=== PATIENT | male | born 1945 | race Caucasian/White ===

== ENCOUNTER 2016-12-05 17:27 | Inpatient (IN) | payer MEDICARE, MEDICAID ==
[~2016-12-05] VITALS: Ht 165.1 cm; Wt 72.1 kg
[2016-12-05] MEDS ORDERED: TEMA7.5C2 PO (18:00)
[2016-12-05] MEDS ORDERED: ATOR20TA PO (18:00)
[2016-12-05] MEDS ORDERED: MAGN400O6 PO (18:00)
[2016-12-05] MEDS ORDERED: AMAN100T PO (18:00)
[2016-12-05] MEDS ORDERED: MAG355OR18 PO (18:00)
[2016-12-05] MEDS ORDERED: NA P133E RC (18:00)
[2016-12-05] MEDS ORDERED: POLY15DR57 OP (18:00)
[2016-12-05] MEDS ORDERED: LORA1TAB PO (18:00)
[2016-12-05] MEDS ORDERED: RISP3TAB5 PO (18:00)
[2016-12-05] MEDS ORDERED: SENN-167 PO (18:00)
[2016-12-05] MEDS ORDERED: BISA10SU12 RC (18:00)
[2016-12-05] MEDS ORDERED: DOCU-141 PO (18:00)
[2016-12-05] MEDS ORDERED: ACET325T53 PO (18:00)
[2016-12-05] MEDS ORDERED: ASPI81TA31 PO (18:00)
[2016-12-05] MEDS ORDERED: PROP10TA10 PO (18:00)
[2016-12-05] MEDS ORDERED: AMLO5TAB2 PO (18:00)
[2016-12-05] MEDS ORDERED: DIVA500T2 PO (18:00)
[2016-12-05] MEDS ORDERED: MEGE40TA PO (18:00)
[2016-12-05] MEDS ORDERED: NICO1PAT28 TD (18:00)
[2016-12-05 18:03] LABS: BASOPHILS # (AUTO) 0.1 K/uL (0.0-8.0); BASOPHILS % (AUTO) 0.8 % (0.0-2.0); EOSINOPHILS # (AUTO) 0.3 K/uL (0.0-0.7); HEMATOCRIT 41.9 % (40-50); HEMOGLOBIN 13.9 G/DL (14.0-18.0); LYMPHOCYTES # (AUTO) 1.8 K/UL (0.8-4.8); LYMPHOCYTES % (AUTO) 26.8 % (20.5-51.5); MEAN CORPUSCULAR HEMOGLOBIN 29.5 UUG (27.0-31.0); MEAN CORPUSCULAR HGB CONC 33 g/dL (32.0-37.0); MEAN CORPUSCULAR VOLUME 88.7 FL (82.0-92.0); MONOCYTES # (AUTO) 0.4 K/UL (0.1-1.30); MONOCYTES % (AUTO) 5.8 % (0.0-11.0); NEUTROPHILS % (AUTO) 61.6 % (38.5-71.5); PLATELET COUNT (AUTO) 220 K/UL (150-450); RED BLOOD CELL COUNT(AUTO) 4.72 MIL/UL (4.7-6.1); WHITE BLOOD COUNT (AUTO) 6.6 K/UL (4.0-11.2)
[2016-12-05 18:08] LABS: CARBON DIOXIDE 25 mmol/L (21-32); CHLORIDE 107 mmol/L (98-107); CREATININE 1.1 mg/dL (0.6-1.3); GLUCOSE 89 mg/dL (74-106); POTASSIUM 3.9 mmol/L (3.5-5.1); UREA NITROGEN, BLOOD 22 mg/dL (7-18)
[2016-12-05 18:15] LABS: ALANINE AMINOTRANSFERASE 20 U/L (16-63); ALKALINE PHOSPHATASE 79 U/L (50-136); ASPARTATE AMINOTRANSFERASE 12 U/L (15-37); BILIRUBIN,DIRECT 0.1 mg/dL (0.0-0.2); BILIRUBIN,TOTAL 0.3 mg/dL (0.2-1.0); TOTAL PROTEIN, SERUM 7.7 g/dL (6.4-8.2)
[2016-12-05 18:16] LABS: ETHANOL < 3 MG/DL (0-0)
[2016-12-05 18:17] LABS: ACETAMINOPHEN < 2.0 ug/mL (10-30)
[2016-12-05] MEDS ORDERED: MAG HYDROX/AL HYDROX/SIMETH 30 ML LIQUID UDC PO PRN (20:15)
[2016-12-05] MEDS ORDERED: Z GUARD REMEDY PASTE 57 GM TUBE TOP PRN (20:15)
[2016-12-05] MEDS ORDERED: MAGNESIUM HYDROXIDE 30 ML LIQUID UDC PO PRN (20:15)
[2016-12-05] MEDS ORDERED: ACETAMINOPHEN 325 MG TABLET PO PRN (20:15)
[2016-12-05 21:00] VITALS: BP 130/88
[2016-12-05] MEDS: TEMAZEPAM 7.5 MG CAPSULE PO PRN (21:40)
[2016-12-05 21:58] VITALS: BP 130/88
[2016-12-05] MEDS ORDERED: BISACODYL 10 MG SUPP.RECT RC PRN (22:45)
[2016-12-05] MEDS ORDERED: FLEET ENEMA 133 ML BOTTLE RC PRN (22:45)
[2016-12-06] MEDS: LORAZEPAM 1 MG TABLET PO PRN (01:44)
[2016-12-06 07:49] LABS: MAGNESIUM 1.8 mg/dL (1.8-2.4); PHOSPHOROUS 3.4 mg/dL (2.5-4.9)
[2016-12-06 07:54] LABS: THYROID STIMULATING HORMONE 0.476 mIU/mL (0.358-3.740)
[2016-12-06] MEDS ORDERED: NICOTINE 21 MG/24HR PATCH TD SCH (09:00)
[2016-12-06] MEDS: DOCUSATE SODIUM 100 MG CAPSULE PO SCH ×2 (10:13→16:40)
[2016-12-06] MEDS: MEGESTROL ACETATE 20 MG TABLET PO SCH ×2 (10:13→16:40)
[2016-12-06] MEDS: NICOTINE 21 MG/24HR PATCH TD SCH (10:13)
[2016-12-06] MEDS: PROPRANOLOL HCL 10 MG TABLET PO SCH ×2 (10:13→16:40)
[2016-12-06] MEDS: AMLODIPINE 5 MG TABLET PO SCH (10:13)
[2016-12-06] MEDS: ASPIRIN 81 MG TAB.CHEW PO SCH (10:13)
[2016-12-06] MEDS: AMANTADINE HCL 100 MG CAPSULE PO SCH ×2 (10:13→16:40)
[2016-12-06] MEDS: POLYVINYL ALCOHOL OPHT DROPS 15 ML BOTTLE OP SCH (11:48)
[2016-12-06 15:00] VITALS: BP 148/51
[2016-12-06 21:00] VITALS: BP 136/70
[2016-12-06] MEDS: VALPROIC ACID 250 MG CAPSULE PO SCH (22:19)
[2016-12-06] MEDS: SENNOSIDES 1 TABLET PO SCH (22:20)
[2016-12-06] MEDS: ATORVASTATIN 20 MG TABLET PO SCH (22:20)
[2016-12-06] MEDS: risperiDONE-M 0.5 MG TAB.RAPDIS PO SCH (22:20)
[2016-12-07 07:30] VITALS: BP 128/87
[2016-12-07] MEDS: NICOTINE 21 MG/24HR PATCH TD SCH (09:19)
[2016-12-07] MEDS: MEGESTROL ACETATE 20 MG TABLET PO SCH ×2 (09:21→16:33)
[2016-12-07] MEDS: VALPROIC ACID 250 MG CAPSULE PO SCH ×2 (09:21→20:20)
[2016-12-07] MEDS: risperiDONE-M 0.5 MG TAB.RAPDIS PO SCH ×2 (09:21→20:19)
[2016-12-07] MEDS: ASPIRIN 81 MG TAB.CHEW PO SCH (09:22)
[2016-12-07] MEDS: AMANTADINE HCL 100 MG CAPSULE PO SCH ×2 (09:22→16:33)
[2016-12-07] MEDS: POLYVINYL ALCOHOL OPHT DROPS 15 ML BOTTLE OP SCH (09:23)
[2016-12-07] MEDS: DOCUSATE SODIUM 100 MG CAPSULE PO SCH ×2 (09:23→16:31)
[2016-12-07] MEDS: PROPRANOLOL HCL 10 MG TABLET PO SCH ×2 (09:25→16:32)
[2016-12-07] MEDS: AMLODIPINE 5 MG TABLET PO SCH (09:25)
[2016-12-07 15:26] VITALS: BP 123/59
[2016-12-07] MEDS: SENNOSIDES 1 TABLET PO SCH (20:20)
[2016-12-07] MEDS: ATORVASTATIN 20 MG TABLET PO SCH (20:20)
[2016-12-07 22:05] VITALS: BP 126/82
[2016-12-08 07:22] LABS: BASOPHILS % (AUTO) 0.8 % (0.0-2.0); EOSINOPHILS # (AUTO) 0.3 K/uL (0.0-0.7); EOSINOPHILS % (AUTO) 4.6 % (0.0-7.0); HEMATOCRIT 40.5 % (40-50); HEMOGLOBIN 13.8 G/DL (14.0-18.0); LYMPHOCYTES # (AUTO) 1.7 K/UL (0.8-4.8); LYMPHOCYTES % (AUTO) 28.9 % (20.5-51.5); MEAN CORPUSCULAR HEMOGLOBIN 30.2 UUG (27.0-31.0); MEAN CORPUSCULAR HGB CONC 34 g/dL (32.0-37.0); MEAN CORPUSCULAR VOLUME 89.1 FL (82.0-92.0); MONOCYTES # (AUTO) 0.4 K/UL (0.1-1.30); MONOCYTES % (AUTO) 6.7 % (0.0-11.0); NEUTROPHILS # (AUTO) 3.6 K/UL (1.8-8.9); PLATELET COUNT (AUTO) 173 K/UL (150-450); RED BLOOD CELL COUNT(AUTO) 4.55 MIL/UL (4.7-6.1)
[2016-12-08 07:48] LABS: ALANINE AMINOTRANSFERASE 18 U/L (16-63); ALKALINE PHOSPHATASE 76 U/L (50-136); ASPARTATE AMINOTRANSFERASE 11 U/L (15-37); BILIRUBIN,TOTAL 0.5 mg/dL (0.2-1.0); CARBON DIOXIDE 27 mmol/L (21-32); CHLORIDE 107 mmol/L (98-107); CREATININE 1.2 mg/dL (0.6-1.3); GLUCOSE 95 mg/dL (74-106); MAGNESIUM 1.8 mg/dL (1.8-2.4); PHOSPHOROUS 3.2 mg/dL (2.5-4.9); POTASSIUM 3.7 mmol/L (3.5-5.1); TOTAL PROTEIN, SERUM 7.6 g/dL (6.4-8.2); UREA NITROGEN, BLOOD 23 mg/dL (7-18)
[2016-12-08] MEDS: MEGESTROL ACETATE 20 MG TABLET PO SCH ×2 (10:18→17:38)
[2016-12-08] MEDS: ASPIRIN 81 MG TAB.CHEW PO SCH (10:18)
[2016-12-08] MEDS: AMANTADINE HCL 100 MG CAPSULE PO SCH ×2 (10:18→17:38)
[2016-12-08] MEDS: risperiDONE-M 0.5 MG TAB.RAPDIS PO SCH ×2 (10:19→20:18)
[2016-12-08] MEDS: AMLODIPINE 5 MG TABLET PO SCH (10:19)
[2016-12-08] MEDS: VALPROIC ACID 250 MG CAPSULE PO SCH ×2 (10:20→20:17)
[2016-12-08] MEDS: DOCUSATE SODIUM 100 MG CAPSULE PO SCH ×2 (10:22→17:36)
[2016-12-08] MEDS: PROPRANOLOL HCL 10 MG TABLET PO SCH ×2 (10:26→17:37)
[2016-12-08] MEDS: NICOTINE 21 MG/24HR PATCH TD SCH (10:26)
[2016-12-08] MEDS: POLYVINYL ALCOHOL OPHT DROPS 15 ML BOTTLE OP SCH (10:27)
[2016-12-08 17:06] VITALS: BP 125/60
[2016-12-08] MEDS: SENNOSIDES 1 TABLET PO SCH (20:17)
[2016-12-08] MEDS: ATORVASTATIN 20 MG TABLET PO SCH (20:17)
[2016-12-08 20:43] VITALS: BP 115/58
[2016-12-08 21:40] VITALS: BP 116/64
[2016-12-09 07:30] VITALS: BP 130/64
[2016-12-09] MEDS: LORAZEPAM 1 MG TABLET PO PRN (10:36)
[2016-12-09] MEDS: NICOTINE 21 MG/24HR PATCH TD SCH (10:36)
[2016-12-09] MEDS: VALPROIC ACID 250 MG CAPSULE PO SCH (10:37)
[2016-12-09] MEDS: risperiDONE-M 0.5 MG TAB.RAPDIS PO SCH ×3 (10:37→18:14)
[2016-12-09] MEDS: MEGESTROL ACETATE 20 MG TABLET PO SCH ×2 (10:38→18:17)
[2016-12-09] MEDS: AMANTADINE HCL 100 MG CAPSULE PO SCH ×2 (10:38→18:18)
[2016-12-09] MEDS: DOCUSATE SODIUM 100 MG CAPSULE PO SCH ×2 (10:38→18:19)
[2016-12-09] MEDS: ASPIRIN 81 MG TAB.CHEW PO SCH (10:39)
[2016-12-09] MEDS: AMLODIPINE 5 MG TABLET PO SCH (10:39)
[2016-12-09] MEDS: PROPRANOLOL HCL 10 MG TABLET PO SCH ×2 (10:48→17:00)
[2016-12-09] MEDS: POLYVINYL ALCOHOL OPHT DROPS 15 ML BOTTLE OP SCH (10:54)
[2016-12-09] MEDS ORDERED: VALPROIC ACID 250 MG CAPSULE PO SCH (13:00)
[2016-12-09] MEDS: VALPROIC ACID 250 MG/5 ML LIQUID UDC PO SCH ×2 (14:15→18:17)
[2016-12-09 16:40] VITALS: BP 109/59
[2016-12-09 19:30] VITALS: BP 108/69
[2016-12-09] MEDS: ATORVASTATIN 20 MG TABLET PO SCH (20:43)
[2016-12-09] MEDS: SENNOSIDES 1 TABLET PO SCH (20:43)
[2016-12-10] MEDS: LORAZEPAM 1 MG TABLET PO PRN ×2 (01:08→20:41)
[2016-12-10] MEDS: NICOTINE 21 MG/24HR PATCH TD SCH (08:09)
[2016-12-10] MEDS: DOCUSATE SODIUM 100 MG CAPSULE PO SCH ×2 (08:09→16:13)
[2016-12-10] MEDS: ASPIRIN 81 MG TAB.CHEW PO SCH (08:09)
[2016-12-10] MEDS: PROPRANOLOL HCL 10 MG TABLET PO SCH ×2 (08:09→16:12)
[2016-12-10] MEDS: MEGESTROL ACETATE 20 MG TABLET PO SCH ×2 (08:10→16:12)
[2016-12-10] MEDS: risperiDONE-M 0.5 MG TAB.RAPDIS PO SCH ×3 (08:10→16:11)
[2016-12-10] MEDS: AMLODIPINE 5 MG TABLET PO SCH (08:10)
[2016-12-10] MEDS: VALPROIC ACID 250 MG/5 ML LIQUID UDC PO SCH ×3 (08:11→16:11)
[2016-12-10 10:00] VITALS: BP 140/92
[2016-12-10] MEDS: POLYVINYL ALCOHOL OPHT DROPS 15 ML BOTTLE OP SCH (11:15)
[2016-12-10] MEDS: AMANTADINE HCL 100 MG CAPSULE PO SCH ×2 (12:36→16:14)
[2016-12-10 15:09] VITALS: BP 138/86
[2016-12-10 20:00] VITALS: BP 137/80
[2016-12-10] MEDS: SENNOSIDES 1 TABLET PO SCH (20:41)
[2016-12-10] MEDS: ATORVASTATIN 20 MG TABLET PO SCH (20:41)
[2016-12-10] MEDS: Z GUARD REMEDY PASTE 57 GM TUBE TOP SCH (20:44)
[2016-12-11] MEDS: LORAZEPAM 1 MG TABLET PO PRN (03:55)
[2016-12-11 07:48] VITALS: BP 124/86
[2016-12-11] MEDS: PROPRANOLOL HCL 10 MG TABLET PO SCH ×2 (08:28→17:07)
[2016-12-11] MEDS: ASPIRIN 81 MG TAB.CHEW PO SCH (08:28)
[2016-12-11] MEDS: MEGESTROL ACETATE 20 MG TABLET PO SCH ×2 (08:28→17:07)
[2016-12-11] MEDS: AMLODIPINE 5 MG TABLET PO SCH (08:28)
[2016-12-11] MEDS: risperiDONE-M 0.5 MG TAB.RAPDIS PO SCH ×3 (08:29→17:08)
[2016-12-11] MEDS: DOCUSATE SODIUM 100 MG CAPSULE PO SCH ×2 (08:29→17:00)
[2016-12-11] MEDS: AMANTADINE HCL 100 MG CAPSULE PO SCH ×2 (08:29→17:08)
[2016-12-11] MEDS: NICOTINE 21 MG/24HR PATCH TD SCH (08:29)
[2016-12-11] MEDS: POLYVINYL ALCOHOL OPHT DROPS 15 ML BOTTLE OP SCH (08:29)
[2016-12-11] MEDS: VALPROIC ACID 250 MG/5 ML LIQUID UDC PO SCH ×3 (08:30→17:06)
[2016-12-11] MEDS: Z GUARD REMEDY PASTE 57 GM TUBE TOP SCH ×2 (08:40→20:40)
[2016-12-11 12:19] VITALS: BP 114/76
[2016-12-11 15:41] VITALS: BP 121/69
[2016-12-11 20:00] VITALS: BP 148/79
[2016-12-11] MEDS: SENNOSIDES 1 TABLET PO SCH (20:40)
[2016-12-11] MEDS: TEMAZEPAM 7.5 MG CAPSULE PO PRN (20:40)
[2016-12-11] MEDS: ATORVASTATIN 20 MG TABLET PO SCH (20:40)
[2016-12-12] MEDS: LORAZEPAM 1 MG TABLET PO PRN ×2 (02:04→06:47)
[2016-12-12] MEDS: ASPIRIN 81 MG TAB.CHEW PO SCH (08:46)
[2016-12-12] MEDS: VALPROIC ACID 250 MG/5 ML LIQUID UDC PO SCH ×3 (08:46→16:44)
[2016-12-12] MEDS: AMLODIPINE 5 MG TABLET PO SCH (08:47)
[2016-12-12] MEDS: DOCUSATE SODIUM 100 MG CAPSULE PO SCH ×2 (08:47→16:47)
[2016-12-12] MEDS: MEGESTROL ACETATE 20 MG TABLET PO SCH ×2 (08:47→16:47)
[2016-12-12] MEDS: PROPRANOLOL HCL 10 MG TABLET PO SCH ×2 (08:49→16:48)
[2016-12-12] MEDS: POLYVINYL ALCOHOL OPHT DROPS 15 ML BOTTLE OP SCH (08:50)
[2016-12-12] MEDS: NICOTINE 21 MG/24HR PATCH TD SCH (08:50)
[2016-12-12] MEDS: risperiDONE-M 0.5 MG TAB.RAPDIS PO SCH ×3 (08:50→16:47)
[2016-12-12] MEDS: AMANTADINE HCL 100 MG CAPSULE PO SCH ×2 (08:51→17:28)
[2016-12-12] MEDS: Z GUARD REMEDY PASTE 57 GM TUBE TOP SCH ×2 (08:52→20:12)
[2016-12-12 09:35] VITALS: BP 102/68
[2016-12-12 15:12] VITALS: BP 108/64
[2016-12-12 19:48] VITALS: BP 116/73
[2016-12-12] MEDS: SENNOSIDES 1 TABLET PO SCH (20:12)
[2016-12-12] MEDS: ATORVASTATIN 20 MG TABLET PO SCH (20:12)
[2016-12-13 07:42] VITALS: BP 139/83
[2016-12-13] MEDS: ASPIRIN 81 MG TAB.CHEW PO SCH (08:20)
[2016-12-13] MEDS: AMANTADINE HCL 100 MG CAPSULE PO SCH ×2 (08:20→17:24)
[2016-12-13] MEDS: MEGESTROL ACETATE 20 MG TABLET PO SCH ×2 (08:20→17:24)
[2016-12-13] MEDS: DOCUSATE SODIUM 100 MG CAPSULE PO SCH ×2 (08:20→17:24)
[2016-12-13] MEDS: risperiDONE-M 0.5 MG TAB.RAPDIS PO SCH ×3 (08:20→17:24)
[2016-12-13] MEDS: VALPROIC ACID 250 MG/5 ML LIQUID UDC PO SCH ×3 (08:20→17:24)
[2016-12-13] MEDS: NICOTINE 21 MG/24HR PATCH TD SCH (08:21)
[2016-12-13] MEDS: AMLODIPINE 5 MG TABLET PO SCH (08:21)
[2016-12-13] MEDS: POLYVINYL ALCOHOL OPHT DROPS 15 ML BOTTLE OP SCH (08:21)
[2016-12-13] MEDS: Z GUARD REMEDY PASTE 57 GM TUBE TOP SCH ×2 (08:22→21:00)
[2016-12-13] MEDS: PROPRANOLOL HCL 10 MG TABLET PO SCH ×2 (08:22→17:25)
[2016-12-13] MEDS: LORAZEPAM 1 MG TABLET PO PRN (10:00)
[2016-12-13 16:16] VITALS: BP 126/86
[2016-12-13 20:03] VITALS: BP 110/80
[2016-12-13] MEDS: ATORVASTATIN 20 MG TABLET PO SCH (20:20)
[2016-12-13] MEDS: SENNOSIDES 1 TABLET PO SCH (20:23)
[2016-12-14] MEDS: ASPIRIN 81 MG TAB.CHEW PO SCH (08:27)
[2016-12-14] MEDS: risperiDONE-M 0.5 MG TAB.RAPDIS PO SCH ×3 (08:27→16:40)
[2016-12-14] MEDS: MEGESTROL ACETATE 20 MG TABLET PO SCH ×2 (08:28→16:40)
[2016-12-14] MEDS: POLYVINYL ALCOHOL OPHT DROPS 15 ML BOTTLE OP SCH (08:29)
[2016-12-14] MEDS: VALPROIC ACID 250 MG/5 ML LIQUID UDC PO SCH ×3 (08:29→16:40)
[2016-12-14] MEDS: AMANTADINE HCL 100 MG CAPSULE PO SCH ×2 (08:29→16:49)
[2016-12-14] MEDS: NICOTINE 21 MG/24HR PATCH TD SCH (08:29)
[2016-12-14] MEDS: AMLODIPINE 5 MG TABLET PO SCH (08:31)
[2016-12-14] MEDS: PROPRANOLOL HCL 10 MG TABLET PO SCH ×2 (08:32→16:40)
[2016-12-14 08:34] VITALS: BP 141/89
[2016-12-14] MEDS: Z GUARD REMEDY PASTE 57 GM TUBE TOP SCH ×2 (08:54→21:36)
[2016-12-14] MEDS: DOCUSATE SODIUM 100 MG CAPSULE PO SCH ×2 (08:55→16:40)
[2016-12-14] MEDS: LORAZEPAM 1 MG TABLET PO PRN (10:58)
[2016-12-14 16:25] VITALS: BP 121/80
[2016-12-14 20:00] VITALS: BP 101/66
[2016-12-14] MEDS: ATORVASTATIN 20 MG TABLET PO SCH (20:49)
[2016-12-14] MEDS: SENNOSIDES 1 TABLET PO SCH (20:50)
[2016-12-15] MEDS ORDERED: FLEET ENEMA 133 ML BOTTLE RC ONE (04:30)
[2016-12-15] MEDS: MEGESTROL ACETATE 20 MG TABLET PO SCH ×2 (08:26→17:21)
[2016-12-15] MEDS: risperiDONE-M 0.5 MG TAB.RAPDIS PO SCH ×3 (08:27→17:46)
[2016-12-15] MEDS: DOCUSATE SODIUM 100 MG CAPSULE PO SCH ×2 (08:27→17:22)
[2016-12-15] MEDS: ASPIRIN 81 MG TAB.CHEW PO SCH (08:27)
[2016-12-15] MEDS: POLYVINYL ALCOHOL OPHT DROPS 15 ML BOTTLE OP SCH (08:28)
[2016-12-15] MEDS: AMANTADINE HCL 100 MG CAPSULE PO SCH ×2 (08:28→17:22)
[2016-12-15] MEDS: Z GUARD REMEDY PASTE 57 GM TUBE TOP SCH ×2 (08:29→21:32)
[2016-12-15] MEDS: NICOTINE 21 MG/24HR PATCH TD SCH (08:29)
[2016-12-15] MEDS: AMLODIPINE 5 MG TABLET PO SCH (08:29)
[2016-12-15] MEDS: VALPROIC ACID 250 MG/5 ML LIQUID UDC PO SCH ×3 (08:32→17:21)
[2016-12-15] MEDS: PROPRANOLOL HCL 10 MG TABLET PO SCH ×2 (08:32→17:24)
[2016-12-15 11:44] VITALS: BP 149/79
[2016-12-15 15:22] VITALS: BP 115/76
[2016-12-15 19:00] VITALS: BP 128/75
[2016-12-15] MEDS: SENNOSIDES 1 TABLET PO SCH (21:32)
[2016-12-15] MEDS: ATORVASTATIN 20 MG TABLET PO SCH (21:32)
[2016-12-16] MEDS: TEMAZEPAM 7.5 MG CAPSULE PO PRN (00:46)
[2016-12-16 05:03] VITALS: BP 148/88
[2016-12-16 09:00] VITALS: BP 144/93
[2016-12-16] MEDS: NICOTINE 21 MG/24HR PATCH TD SCH (09:07)
[2016-12-16] MEDS: AMANTADINE HCL 100 MG CAPSULE PO SCH (09:07)
[2016-12-16] MEDS: MEGESTROL ACETATE 20 MG TABLET PO SCH (09:08)
[2016-12-16] MEDS: POLYVINYL ALCOHOL OPHT DROPS 15 ML BOTTLE OP SCH (09:08)
[2016-12-16] MEDS: VALPROIC ACID 250 MG/5 ML LIQUID UDC PO SCH ×2 (09:08→12:29)
[2016-12-16] MEDS: DOCUSATE SODIUM 100 MG CAPSULE PO SCH (09:09)
[2016-12-16] MEDS: PROPRANOLOL HCL 10 MG TABLET PO SCH (09:09)
[2016-12-16] MEDS: ASPIRIN 81 MG TAB.CHEW PO SCH (09:09)
[2016-12-16] MEDS: risperiDONE-M 0.5 MG TAB.RAPDIS PO SCH ×2 (09:09→12:29)
[2016-12-16] MEDS: AMLODIPINE 5 MG TABLET PO SCH (09:09)
[2016-12-16] MEDS: Z GUARD REMEDY PASTE 57 GM TUBE TOP SCH (09:10)
[2016-12-16 15:00] VITALS: BP 122/77
== END 2016-12-16 16:12 | DRG 885 ==
LOC: ER 17:28 → GPS 19:36 → MED 12-09 21:17 → GPSOV 12-09 21:40
PROVIDERS: ADMIT Psychiatry & Neurology Psychosomatic Medicine; ATTEND Internal Medicine
DX: F25.0 Schizoaffective disorder, bipolar type (principal); F03.90 Unspecified dementia, unspecified severity, without behavioral disturbance, psychotic disturbance, mood disturbance, and anxiety; G20 Parkinson's disease; E83.52 Hypercalcemia; I11.9 Hypertensive heart disease without heart failure; G40.909 Epilepsy, unspecified, not intractable, without status epilepticus; E78.5 Hyperlipidemia, unspecified; Z79.899 Other long term (current) drug therapy; Z79.82 Long term (current) use of aspirin; H40.9 Unspecified glaucoma; N40.0 Benign prostatic hyperplasia without lower urinary tract symptoms; F41.9 Anxiety disorder, unspecified; K21.9 Gastro-esophageal reflux disease without esophagitis; E86.0 Dehydration
CPT/HCPCS: 36415; 71010; 82306; 83735; 84100; 84443; 85025; 93005; 97110; 97116; 97161; 97530; A4663; G0480; G0480-TC

== ENCOUNTER 2018-01-28 20:43 | Inpatient (IN) | payer MEDICARE, MEDICAID ==
[~2018-01-28] VITALS: Ht 180.3 cm; Wt 81.6 kg
[~2018-01-28 20:43] MED LIST: AMAN100T PO; AMLO5TAB7 PO; ASPI81TA31 PO; ATOR20TA PO; BISA10SU12 RC; DIVA500T2 PO; DOCU-141 PO; MEGE40TA PO; NA P133E RC; NICO1PAT28 TD; POLY15DR57 OP; PROP10TA10 PO; SENN-167 PO
--- NOTE | 2018-01-28 20:56 | NUR ---
Xray at bedside
[2018-01-28] MEDS ORDERED: DEPAKOTE SPRINKLES PO (21:05)
[2018-01-28] MEDS ORDERED: ACET325C5 PO (21:05)
[2018-01-28] MEDS ORDERED: CHOL100045 PO (21:05)
[2018-01-28] MEDS ORDERED: PROP20TA19 PO (21:05)
[2018-01-28] MEDS ORDERED: MAGN400O6 PO (21:05)
[2018-01-28] MEDS ORDERED: AMLO5TAB4 PO (21:05)
[2018-01-28] MEDS ORDERED: CYAN100T3 PO (21:05)
[2018-01-28] MEDS ORDERED: RISP2TAB5 PO ×2 (21:05)
[2018-01-28 21:12] LABS: BASOPHILS # (AUTO) 0.1 K/uL (0.0-8.0); BASOPHILS % (AUTO) 0.8 % (0.0-2.0); EOSINOPHILS # (AUTO) 0.3 K/uL (0.0-0.7); EOSINOPHILS % (AUTO) 4.2 % (0.0-7.0); HEMATOCRIT 37.6 % (36.7-47.1); HEMOGLOBIN 12.8 g/dL (12.5-16.3); LYMPHOCYTES # (AUTO) 2.1 K/uL (20.0-40.0); LYMPHOCYTES % (AUTO) 30.4 % (20.5-51.5); MEAN CORPUSCULAR HEMOGLOBIN 30.6 uug (23.8-33.4); MEAN CORPUSCULAR HGB CONC 34 g/dL (32.5-36.3); MEAN CORPUSCULAR VOLUME 89.7 fL (73.0-96.2); MONOCYTES # (AUTO) 0.7 K/uL (2.0-10.0); MONOCYTES % (AUTO) 9.3 % (0.0-11.0); NEUTROPHILS # (AUTO) 3.9 K/uL (1.8-8.9); NEUTROPHILS % (AUTO) 55.3 % (38.5-71.5); PLATELET COUNT (AUTO) 138 K/uL (152-348); RED BLOOD CELL COUNT(AUTO) 4.19 MIL/uL (4.06-5.63)
[2018-01-28 21:18] LABS: CARBON DIOXIDE 29 mmol/L (21-32); CHLORIDE 105 mmol/L (98-107); CREATININE 1.1 mg/dL (0.6-1.3); GLUCOSE 110 mg/dL (74-106); POTASSIUM 4.1 mmol/L (3.5-5.1); UREA NITROGEN, BLOOD 22 mg/dL (7-18)
--- NOTE | 2018-01-28 21:18 | NUR ---
Pt provided urine, sent to lab.
[2018-01-28 21:23] LABS: ACETAMINOPHEN 3.2 ug/mL (10-30); ALANINE AMINOTRANSFERASE 21 U/L (16-63); ALKALINE PHOSPHATASE 56 U/L (50-136); ASPARTATE AMINOTRANSFERASE 9 U/L (15-37); BILIRUBIN,DIRECT 0.1 mg/dL (0.0-0.2); BILIRUBIN,TOTAL 0.5 mg/dL (0.2-1.0); VALPROIC ACID 63 ug/mL (50-100)
[2018-01-28 21:24] LABS: *BILIRUBIN,URIN NEGATIVE (NEGATIVE); *BLOOD, URINE Trace-lysed (NEGATIVE); *CLARITY,URINE SLIGHTLY CLOUDY (CLEAR); *COLOR,URINE YELLOW (YELLOW); *KETONES,URINE NEGATIVE (NEGATIVE); *PROTEIN,URINE NEGATIVE (NEGATIVE); *UROBILINOGEN,URINE 0.2 E.U./dl (NORMAL); LEUKOCYTE ESTERASE ,URINE 2+ (NEGATIVE); NITRITE, URINE NEGATIVE (NEGATIVE); UGLUCOSE NEGATIVE (NEGATIVE)
[2018-01-28 21:27] LABS: ETHANOL < 3 MG/DL (0-0)
[2018-01-28 21:31] LABS: THYROID STIMULATING HORMONE 1.726 mIU/mL (0.358-3.740)
[2018-01-28 21:31] LABS: BACTERIA,URINE MANY /HPF (NONE SEEN); SQUAMOUS EPITHELIAL CELL,UR FEW /HPF (NONE SEEN); WBC,URINE 50-80 /HPF (0-3)
[2018-01-28 21:36] LABS: *AMPHETAMINE, URINE NEGATIVE (NEGATIVE); *BARBITURATE, URINE NEGATIVE (NEGATIVE); *CANNABINOID, URINE NEGATIVE (NEGATIVE); *COCCAINE, URINE NEGATIVE (NEGATIVE); *OPIATE, URINE NEGATIVE (NEGATIVE); *PHENCYCLIDINE SCREEN,URINE NEGATIVE (NEGATIVE)
[2018-01-28] MEDS ORDERED: SULFAMETH/TRIMETH 800/160 MG TABLET ONE (21:40)
[2018-01-28] MEDS ORDERED: SULFAMETH/TRIMETH 800/160 MG TABLET PO ONE (21:45)
--- NOTE | 2018-01-28 22:00 | NUR ---
Report given to Prasad AGUIRRE U.
[2018-01-28 23:51] VITALS: BP 144/73
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
--- NOTE | 2018-01-29 00:30 | NUR ---
appears to be asleep. no distress noted.
[2018-01-29] MEDS ORDERED: MAGNESIUM HYDROXIDE 30 ML LIQUID UDC PO PRN (01:00)
[2018-01-29] MEDS ORDERED: MAG HYDROX/AL HYDROX/SIMETH 30 ML LIQUID UDC PO PRN (01:00)
[2018-01-29] MEDS ORDERED: ACETAMINOPHEN 325 MG TABLET PO PRN (01:00)
--- NOTE | 2018-01-29 06:00 | NUR ---
slept 4.5 hours, total. assisted with am care, and shower. no distress noted.
[2018-01-29 07:30] VITALS: BP 128/71
[2018-01-29] MEDS: NICOTINE 21 MG/24HR PATCH TD SCH (09:37)
--- NOTE | 2018-01-29 11:00 | NUR ---
Gps/Synthetic Chemist- Patient's sister Yasmin called, wants to know visiting hour/schedules, wants to know how her brother was doing , claimed she does not know why Diego hates [facility] , and what trigger his anger.
[2018-01-29] MEDS ORDERED: POLYVINYL ALCOHOL OPHT DROPS 15 ML BOTTLE EACHEYE PRN (12:00)
[2018-01-29] MEDS ORDERED: NICOTINE 21 MG/24HR PATCH TD SCH (12:00)
--- NOTE | 2018-01-29 13:31 | NUR ---
Initial DC Instructions: Patient currently resides at [facility] [[address] [place] [address]; ]. Per pt he would like to return there upon discharge. BERNARD attempted to contact his LPS Conservator, Annette Dennis ([phone]) and his sister Yasmin Jaquez ([phone]) and left messages for return call. BERNARD will continue to collaborate with pt, family, and MD regarding most appropriate discharge plans. BERNARD will form a safe and proper discharge.
[2018-01-29] MEDS ORDERED: risperiDONE 1 MG/ML UDC PO SCH (13:45)
[2018-01-29] MEDS: PROPRANOLOL HCL 10 MG TABLET PO SCH ×2 (15:24→20:48)
[2018-01-29 15:26] VITALS: BP 132/89
[2018-01-29] MEDS: risperiDONE 2 MG TABLET PO SCH ×2 (15:28→20:49)
[2018-01-29] MEDS ORDERED: BISACODYL 10 MG SUPP.RECT RC PRN (15:30)
--- NOTE | 2018-01-29 15:54 | NUR ---
Gps/Mixer Blender- Stayed in the activity room most of the afternoon, stayed up for lunch. Making his needs known, needy, compliant with his routine medications, min. prompting needed. Interacting w/ his selected peers. Had been cooperative w/ staff, safety reviewed and emphasized.
[2018-01-29] MEDS: DIVALPROEX 250 MG TABLET.DR PO SCH ×3 (16:03→22:00)
[2018-01-29] MEDS: MEGESTROL ACETATE 20 MG TABLET PO SCH (16:03)
[2018-01-29] MEDS: CEPHALEXIN MONOHYDRATE 500 MG CAPSULE PO SCH (16:03)
[2018-01-29] MEDS: BENZTROPINE MESYLATE 1 MG TABLET PO SCH (16:06)
[2018-01-29] MEDS: DOCUSATE SODIUM 100 MG CAPSULE PO SCH (16:06)
[2018-01-29 20:00] VITALS: BP 128/76
[2018-01-29] MEDS: AMANTADINE HCL 100 MG CAPSULE PO SCH (20:48)
[2018-01-29] MEDS: ATORVASTATIN 20 MG TABLET PO SCH (20:48)
[2018-01-29] MEDS: SENNOSIDES 1 TABLET PO SCH (20:50)
--- NOTE | 2018-01-29 22:00 | NUR ---
received to care, up in storm chair, watching tv. no interactions with peers noted. compliant with medications and staff direction. no distress noted,
[2018-01-29] MEDS: TEMAZEPAM 7.5 MG CAPSULE PO PRN (23:35)
--- NOTE | 2018-01-29 23:35 | NUR ---
PRN RESTORIL GIVEN FOR INSOMNIA.
--- NOTE | 2018-01-30 00:30 | NUR ---
appears to be asleep, in bed. no distress noted.
--- NOTE | 2018-01-30 06:00 | NUR ---
slept 5.0 hours, total. assisted with am care, and placed in storm chair. no distress noted.
[2018-01-30] MEDS: NICOTINE 21 MG/24HR PATCH TD SCH (08:00)
[2018-01-30] MEDS: BENZTROPINE MESYLATE 1 MG TABLET PO SCH ×2 (08:00→16:33)
[2018-01-30] MEDS: CEPHALEXIN MONOHYDRATE 500 MG CAPSULE PO SCH ×2 (08:01→16:33)
[2018-01-30] MEDS: AMANTADINE HCL 100 MG CAPSULE PO SCH ×2 (08:01→20:39)
[2018-01-30] MEDS: CHOLECALCIFEROL 1,000 UNIT TABLET PO SCH (08:01)
[2018-01-30] MEDS: MEGESTROL ACETATE 20 MG TABLET PO SCH ×2 (08:01→16:32)
[2018-01-30] MEDS: CYANOCOBALAMIN 1,000 MCG TABLET PO SCH (08:01)
[2018-01-30] MEDS: PROPRANOLOL HCL 10 MG TABLET PO SCH ×2 (08:02→20:40)
[2018-01-30] MEDS: DIVALPROEX 250 MG TABLET.DR PO SCH ×3 (08:02→16:33)
[2018-01-30] MEDS: risperiDONE 2 MG TABLET PO SCH ×2 (08:02→20:39)
[2018-01-30] MEDS: DOCUSATE SODIUM 100 MG CAPSULE PO SCH ×2 (08:02→16:39)
[2018-01-30] MEDS: ASPIRIN 81 MG TAB.CHEW PO SCH (08:02)
[2018-01-30] MEDS: AMLODIPINE 5 MG TABLET PO SCH (08:02)
[2018-01-30] MEDS ORDERED: CYANOCOBALAMIN 100 MCG TABLET PO SCH (09:00)
[2018-01-30 09:31] VITALS: BP 156/77
[2018-01-30 15:18] VITALS: BP 105/77
[2018-01-30 20:00] VITALS: BP 117/70
[2018-01-30] MEDS: ATORVASTATIN 20 MG TABLET PO SCH (20:39)
[2018-01-30] MEDS: SENNOSIDES 1 TABLET PO SCH (20:50)
--- NOTE | 2018-01-30 20:51 | NUR ---
2100 dose of Senokot held due to loose stools. will continue to monitor
[2018-01-31 07:30] VITALS: BP 119/71
[2018-01-31] MEDS: ASPIRIN 81 MG TAB.CHEW PO SCH (08:08)
[2018-01-31] MEDS: CEPHALEXIN MONOHYDRATE 500 MG CAPSULE PO SCH ×2 (08:08→16:53)
[2018-01-31] MEDS: NICOTINE 21 MG/24HR PATCH TD SCH (08:08)
[2018-01-31] MEDS: MEGESTROL ACETATE 20 MG TABLET PO SCH ×2 (08:09→16:53)
[2018-01-31] MEDS: DOCUSATE SODIUM 100 MG CAPSULE PO SCH ×2 (08:09→16:53)
[2018-01-31] MEDS: risperiDONE 2 MG TABLET PO SCH ×2 (08:09→20:47)
[2018-01-31] MEDS: AMANTADINE HCL 100 MG CAPSULE PO SCH ×2 (08:09→20:45)
[2018-01-31] MEDS: DIVALPROEX 250 MG TABLET.DR PO SCH ×2 (08:09→16:53)
[2018-01-31] MEDS: CYANOCOBALAMIN 1,000 MCG TABLET PO SCH (08:09)
[2018-01-31] MEDS: AMLODIPINE 5 MG TABLET PO SCH (08:09)
[2018-01-31] MEDS: BENZTROPINE MESYLATE 1 MG TABLET PO SCH ×2 (08:09→16:53)
[2018-01-31] MEDS: CHOLECALCIFEROL 1,000 UNIT TABLET PO SCH (08:09)
[2018-01-31] MEDS: PROPRANOLOL HCL 10 MG TABLET PO SCH ×2 (08:09→20:45)
[2018-01-31] MEDS: risperiDONE 1 MG TABLET PO SCH (12:51)
[2018-01-31 15:40] VITALS: BP 119/70
[2018-01-31 20:00] VITALS: BP 143/87
[2018-01-31] MEDS: ATORVASTATIN 20 MG TABLET PO SCH (20:45)
[2018-01-31] MEDS: TEMAZEPAM 7.5 MG CAPSULE PO PRN (20:47)
[2018-01-31] MEDS: SENNOSIDES 1 TABLET PO SCH (20:48)
[2018-01-31] MEDS: Z GUARD REMEDY PASTE 57 GM TUBE TOP SCH (20:50)
[2018-02-01 07:30] VITALS: BP 134/75
[2018-02-01] MEDS: LORAZEPAM 0.5 MG TABLET PO PRN (08:48)
[2018-02-01] MEDS: ASPIRIN 81 MG TAB.CHEW PO SCH (09:07)
[2018-02-01] MEDS: DIVALPROEX 250 MG TABLET.DR PO SCH ×2 (09:07→17:04)
[2018-02-01] MEDS: PROPRANOLOL HCL 10 MG TABLET PO SCH ×2 (09:07→21:58)
[2018-02-01] MEDS: AMANTADINE HCL 100 MG CAPSULE PO SCH ×2 (09:07→21:28)
[2018-02-01] MEDS: CHOLECALCIFEROL 1,000 UNIT TABLET PO SCH (09:07)
[2018-02-01] MEDS: risperiDONE 2 MG TABLET PO SCH ×2 (09:07→21:28)
[2018-02-01] MEDS: CEPHALEXIN MONOHYDRATE 500 MG CAPSULE PO SCH ×2 (09:07→17:03)
[2018-02-01] MEDS: AMLODIPINE 5 MG TABLET PO SCH (09:08)
[2018-02-01] MEDS: BENZTROPINE MESYLATE 1 MG TABLET PO SCH ×2 (09:08→17:04)
[2018-02-01] MEDS: CYANOCOBALAMIN 1,000 MCG TABLET PO SCH (09:08)
[2018-02-01] MEDS: DOCUSATE SODIUM 100 MG CAPSULE PO SCH ×2 (09:08→17:04)
[2018-02-01] MEDS: Z GUARD REMEDY PASTE 57 GM TUBE TOP SCH ×2 (09:08→21:57)
[2018-02-01] MEDS: NICOTINE 21 MG/24HR PATCH TD SCH (09:09)
[2018-02-01] MEDS: MEGESTROL ACETATE 20 MG TABLET PO SCH ×2 (10:13→17:03)
[2018-02-01] MEDS: risperiDONE 1 MG TABLET PO SCH (12:25)
[2018-02-01 16:48] VITALS: BP 110/75
[2018-02-01 19:58] VITALS: BP 150/69
[2018-02-01] MEDS: SENNOSIDES 1 TABLET PO SCH (21:28)
[2018-02-01] MEDS: ATORVASTATIN 20 MG TABLET PO SCH (21:29)
[2018-02-02 07:30] VITALS: BP 117/70
[2018-02-02] MEDS: BENZTROPINE MESYLATE 1 MG TABLET PO SCH ×2 (08:11→16:07)
[2018-02-02] MEDS: AMANTADINE HCL 100 MG CAPSULE PO SCH ×2 (08:11→20:18)
[2018-02-02] MEDS: CEPHALEXIN MONOHYDRATE 500 MG CAPSULE PO SCH ×2 (08:12→16:07)
[2018-02-02] MEDS: AMLODIPINE 5 MG TABLET PO SCH (08:12)
[2018-02-02] MEDS: ASPIRIN 81 MG TAB.CHEW PO SCH (08:12)
[2018-02-02] MEDS: DIVALPROEX 250 MG TABLET.DR PO SCH ×2 (08:20→16:07)
[2018-02-02] MEDS: NICOTINE 21 MG/24HR PATCH TD SCH (08:20)
[2018-02-02] MEDS: CHOLECALCIFEROL 1,000 UNIT TABLET PO SCH (08:21)
[2018-02-02] MEDS: CYANOCOBALAMIN 1,000 MCG TABLET PO SCH (08:21)
[2018-02-02] MEDS: MEGESTROL ACETATE 20 MG TABLET PO SCH ×2 (08:21→16:07)
[2018-02-02] MEDS: risperiDONE 2 MG TABLET PO SCH ×3 (08:21→20:18)
[2018-02-02] MEDS: DOCUSATE SODIUM 100 MG CAPSULE PO SCH ×2 (08:22→16:07)
[2018-02-02] MEDS: PROPRANOLOL HCL 10 MG TABLET PO SCH ×2 (08:22→20:18)
[2018-02-02] MEDS: Z GUARD REMEDY PASTE 57 GM TUBE TOP SCH ×2 (08:29→20:19)
--- NOTE | 2018-02-02 11:36 | NUR ---
Firearms Report: Print Developer completed and submitted [employer] Firearms Report for 5250 GD certification.
[2018-02-02] MEDS ORDERED: risperiDONE 1 MG TABLET PO SCH (13:00)
[2018-02-02] MEDS: LORAZEPAM 0.5 MG TABLET PO PRN (16:07)
[2018-02-02 16:48] VITALS: BP 143/91
[2018-02-02 20:10] VITALS: BP 128/81
[2018-02-02] MEDS: ATORVASTATIN 20 MG TABLET PO SCH (20:18)
[2018-02-02] MEDS: SENNOSIDES 1 TABLET PO SCH (20:18)
[2018-02-03 07:30] VITALS: BP 138/75
[2018-02-03] MEDS: DIVALPROEX 250 MG TABLET.DR PO SCH ×2 (08:54→17:37)
[2018-02-03] MEDS: risperiDONE 2 MG TABLET PO SCH ×3 (08:54→20:03)
[2018-02-03] MEDS: CYANOCOBALAMIN 1,000 MCG TABLET PO SCH (08:54)
[2018-02-03] MEDS: CHOLECALCIFEROL 1,000 UNIT TABLET PO SCH (08:55)
[2018-02-03] MEDS: CEPHALEXIN MONOHYDRATE 500 MG CAPSULE PO SCH (08:55)
[2018-02-03] MEDS: DOCUSATE SODIUM 100 MG CAPSULE PO SCH ×2 (08:55→17:00)
[2018-02-03] MEDS: ASPIRIN 81 MG TAB.CHEW PO SCH (08:55)
[2018-02-03] MEDS: BENZTROPINE MESYLATE 1 MG TABLET PO SCH ×2 (08:55→17:37)
[2018-02-03] MEDS: NICOTINE 21 MG/24HR PATCH TD SCH (08:55)
[2018-02-03] MEDS: AMLODIPINE 5 MG TABLET PO SCH (08:55)
[2018-02-03] MEDS: Z GUARD REMEDY PASTE 57 GM TUBE TOP SCH ×2 (08:56→20:04)
[2018-02-03] MEDS: PROPRANOLOL HCL 10 MG TABLET PO SCH ×2 (09:00→20:04)
[2018-02-03] MEDS: MEGESTROL ACETATE 20 MG TABLET PO SCH ×2 (09:17→17:37)
[2018-02-03] MEDS: AMANTADINE HCL 100 MG CAPSULE PO SCH ×2 (09:17→20:03)
[2018-02-03 17:11] VITALS: BP 137/83
[2018-02-03] MEDS: ATORVASTATIN 20 MG TABLET PO SCH (20:03)
[2018-02-03] MEDS: SENNOSIDES 1 TABLET PO SCH (20:04)
[2018-02-03 21:43] VITALS: BP 145/85
[2018-02-03] MEDS ORDERED: DIVALPROEX 250 MG TABLET.DR PO SCH (23:45)
[2018-02-04] MEDS: TEMAZEPAM 7.5 MG CAPSULE PO PRN (01:45)
[2018-02-04 07:30] VITALS: BP 105/59
[2018-02-04] MEDS: AMLODIPINE 5 MG TABLET PO SCH (09:00)
[2018-02-04] MEDS: PROPRANOLOL HCL 10 MG TABLET PO SCH (09:00)
[2018-02-04] MEDS: ASPIRIN 81 MG TAB.CHEW PO SCH (09:05)
[2018-02-04] MEDS: DOCUSATE SODIUM 100 MG CAPSULE PO SCH (09:05)
[2018-02-04] MEDS: CHOLECALCIFEROL 1,000 UNIT TABLET PO SCH (09:06)
[2018-02-04] MEDS: DIVALPROEX 250 MG TABLET.DR PO SCH (09:06)
[2018-02-04] MEDS: BENZTROPINE MESYLATE 1 MG TABLET PO SCH (09:06)
[2018-02-04] MEDS: CYANOCOBALAMIN 1,000 MCG TABLET PO SCH (09:06)
[2018-02-04] MEDS: risperiDONE 2 MG TABLET PO SCH ×2 (09:06→12:53)
[2018-02-04] MEDS: AMANTADINE HCL 100 MG CAPSULE PO SCH (09:09)
[2018-02-04] MEDS: MEGESTROL ACETATE 20 MG TABLET PO SCH (09:09)
[2018-02-04] MEDS: NICOTINE 21 MG/24HR PATCH TD SCH (09:11)
[2018-02-04] MEDS: Z GUARD REMEDY PASTE 57 GM TUBE TOP SCH (09:12)
--- NOTE | 2018-02-04 13:00 | NUR ---
Discharge Note: Patient will be discharged to [facility] [[address], [place] [address]; [phone]] via ambulance. Spoke with Rancho at the facility who states they are ready to accept the patient today. Spoke with patient's LPS conservator, Coral Dennis ([phone]) who is aware and agreeable with discharge plans. Patient is cooperative with discharge plans. Patient will follow-up at the facility with Dr. Ames (Informatics Educator) and Dr. Rose (Psychiatrist). Addendum: 02/04/18 at 1306 by CHRIS DONG For smoking cessation, patient was referred to [employer] 800-LUNGUSA and [employer] [phone].
[2018-02-04 15:39] VITALS: BP 144/80
--- NOTE | 2018-02-04 15:55 | NUR ---
1300 CALLED REPORT TO [facility] , [facility] - SPOKE WITH TIMOTHY SZYMANSKI CUTTING DEPARTMENT SUPERVISOR AND REPORT GIVEN REGARDING PATIENT WILL BE DISCHARGED TO THEIR FACILITY. RN INFORMED ABOUT PATIENT MEDICATION TO CONTINUE UPON DISCHARGED, DIAGNOSIS AND PATIENT CURRENT BEHAVIOR-RN IN FACILITY VERBALIZED UNDERSTANDING. 1545 PATIENT DISCHARGED TO THE FACILITY VIA AMBULANCE, FAIR CONDITION. PATIENT DENIES SI/HI. NO HALLUCINATION. NO DELUSION. NO A/V HALLUCINATION . V/S STABLE.
== END 2018-02-04 15:45 | DRG 885 ==
LOC: ER 20:46 → GPS 22:07
PROVIDERS: ADMIT Psychiatry & Neurology Psychosomatic Medicine; ATTEND Nurse Practitioner Acute Care
DX: F25.0 Schizoaffective disorder, bipolar type (principal); G93.41 Metabolic encephalopathy; N39.0 Urinary tract infection, site not specified; K21.9 Gastro-esophageal reflux disease without esophagitis; E78.5 Hyperlipidemia, unspecified; Z88.0 Allergy status to penicillin; Z88.8 Allergy status to other drugs, medicaments and biological substances; Z79.82 Long term (current) use of aspirin; Z79.899 Other long term (current) drug therapy; E86.0 Dehydration; Z72.0 Tobacco use; G20 Parkinson's disease; F03.90 Unspecified dementia, unspecified severity, without behavioral disturbance, psychotic disturbance, mood disturbance, and anxiety; G40.909 Epilepsy, unspecified, not intractable, without status epilepticus; E83.52 Hypercalcemia; I11.9 Hypertensive heart disease without heart failure; N40.0 Benign prostatic hyperplasia without lower urinary tract symptoms; H40.9 Unspecified glaucoma; F41.9 Anxiety disorder, unspecified
CPT/HCPCS: 36415; 71045; 80164; 80307; 84443; 85025; 93005; 97110; 97116; 97530; A4663; G0480; G0480-TC; J3490

== ENCOUNTER 2018-11-26 17:44 | Inpatient (IN) | payer MEDICARE, MEDICAID ==
[~2018-11-26] VITALS: Ht 165.1 cm; Wt 72.7 kg
[~2018-11-26 17:44] MED LIST changes: +ACET325C5 PO; +AMLO5TAB4 PO; -AMLO5TAB7 PO; +AMLO5TAB9 PO; +CHOL100045 PO; +CYAN100T3 PO; -DIVA500T2 PO; +MAGN400O6 PO; +PROP20TA19 PO; -SENN-167 PO; +SENN-168 PO
[2018-11-26 18:20] LABS: BASOPHILS # (AUTO) 0.1 K/uL (0.0-8.0); BASOPHILS % (AUTO) 0.8 % (0.0-2.0); EOSINOPHILS # (AUTO) 0.4 K/uL (0.0-0.7); EOSINOPHILS % (AUTO) 4.9 % (0.0-7.0); HEMATOCRIT 41.3 % (36.7-47.1); HEMOGLOBIN 13.6 g/dL (12.5-16.3); LYMPHOCYTES # (AUTO) 1.5 K/uL (20.0-40.0); LYMPHOCYTES % (AUTO) 18.9 % (20.5-51.5); MEAN CORPUSCULAR HEMOGLOBIN 30.1 uug (23.8-33.4); MEAN CORPUSCULAR HGB CONC 33 g/dL (32.5-36.3); MEAN CORPUSCULAR VOLUME 91.3 fL (73.0-96.2); MONOCYTES # (AUTO) 0.6 K/uL (2.0-10.0); NEUTROPHILS # (AUTO) 5.4 K/uL (1.8-8.9); NEUTROPHILS % (AUTO) 67.4 % (38.5-71.5); PLATELET COUNT (AUTO) 163 K/uL (152-348); RED BLOOD CELL COUNT(AUTO) 4.52 MIL/uL (4.06-5.63); WHITE BLOOD COUNT (AUTO) 8.1 K/uL (3.6-10.2)
[2018-11-26 18:28] LABS: CARBON DIOXIDE 30 mmol/L (21-32); CHLORIDE 105 mmol/L (98-107); CREATININE 1.2 mg/dL (0.6-1.3); GLUCOSE 103 mg/dL (74-106); POTASSIUM 4.2 mmol/L (3.5-5.1); UREA NITROGEN, BLOOD 26 mg/dL (7-18)
[2018-11-26 18:33] LABS: ALANINE AMINOTRANSFERASE 11 U/L (16-63); ALKALINE PHOSPHATASE 60 U/L (50-136); ASPARTATE AMINOTRANSFERASE 11 U/L (15-37); BILIRUBIN,DIRECT 0.1 mg/dL (0.0-0.2); BILIRUBIN,TOTAL 0.5 mg/dL (0.2-1.0); TOTAL PROTEIN, SERUM 7.4 g/dL (6.4-8.2)
[2018-11-26 18:34] LABS: ACETAMINOPHEN < 2.0 ug/mL (10-30)
[2018-11-26 18:36] LABS: ETHANOL < 3 MG/DL (0-0)
[2018-11-26] MEDS ORDERED: LORA0.5T PO (18:38)
[2018-11-26] MEDS ORDERED: RISP2TAB23 PO (18:38)
[2018-11-26] MEDS ORDERED: DIVA500T4 PO (18:38)
[2018-11-26] MEDS ORDERED: PROP10TA10 PO (18:38)
[2018-11-26] MEDS ORDERED: BENZ2AMP PO (18:38)
[2018-11-26] MEDS ORDERED: CARB15DR99 EACHEYE (18:38)
[2018-11-26] MEDS ORDERED: DIVA250T PO (18:38)
[2018-11-26] MEDS ORDERED: NYST15CR15 TP (18:41)
--- NOTE | 2018-11-26 19:00 | NUR ---
shift report received from TIMOTHY Landry.
--- NOTE | 2018-11-26 20:02 | NUR ---
report given to TIMOTHY Hood.
[2018-11-26] MEDS ORDERED: MAGNESIUM HYDROXIDE 30 ML LIQUID UDC PO PRN (20:15)
[2018-11-26] MEDS ORDERED: MAG HYDROX/AL HYDROX/SIMETH 30 ML LIQUID UDC PO PRN (20:15)
[2018-11-26] MEDS ORDERED: ACETAMINOPHEN 650 MG SUPP.RECT RC PRN (20:15)
--- NOTE | 2018-11-26 20:17 | NUR ---
[facility] Ashish [facility].
[2018-11-26 21:25] VITALS: BP 110/83
[2018-11-26] MEDS ORDERED: BISACODYL 10 MG SUPP.RECT RC PRN (21:30)
[2018-11-26] MEDS ORDERED: FLEET ENEMA 133 ML BOTTLE RC PRN (21:30)
[2018-11-26] MEDS: TEMAZEPAM 7.5 MG CAPSULE PO PRN (22:33)
--- NOTE | 2018-11-26 23:50 | NUR ---
ADMISSION NOTES: Pt arrived to [facility]HU from ED @ 2014 via gurney, accompanied by ED staff. Pt is on a 5150 hold for DTO and will be admitted under the care of Dr. Rose who has placed orders. Upon admission, pt is A/O x 2-3, can be forgetful at times but redirectable, cooperative with admission process, pleasant with staff, unable to sign papers but verbalized agreement with admission. Pt has rashes throughout body, per report from facility, pt has had rashes and is already receiving treatment. Pt oriented to unit and rules, given Restoril for sleep with good effect. Emphasized safety, bed at lowest position with wheels locked and side rails up x 2.
[2018-11-27 08:00] VITALS: BP 101/59
[2018-11-27] MEDS: POLYVINYL ALCOHOL OPHT DROPS 15 ML BOTTLE EACHEYE SCH (08:43)
[2018-11-27] MEDS: ASPIRIN 81 MG TAB.CHEW PO SCH (08:45)
[2018-11-27] MEDS: AMANTADINE HCL 100 MG CAPSULE PO SCH ×2 (08:45→20:00)
[2018-11-27] MEDS: CHOLECALCIFEROL 1,000 UNIT TABLET PO SCH (08:45)
[2018-11-27] MEDS: DOCUSATE SODIUM 100 MG CAPSULE PO SCH ×2 (08:45→16:02)
[2018-11-27] MEDS: MEGESTROL ACETATE 20 MG TABLET PO SCH ×2 (08:46→16:03)
[2018-11-27] MEDS: PROPRANOLOL HCL 10 MG TABLET PO SCH ×2 (08:46→20:03)
[2018-11-27] MEDS: NICOTINE 21 MG/24HR PATCH TD SCH (08:46)
[2018-11-27] MEDS: AMLODIPINE 5 MG TABLET PO SCH (08:47)
[2018-11-27] MEDS: CYANOCOBALAMIN 1,000 MCG TABLET PO SCH (08:49)
[2018-11-27] MEDS ORDERED: NYSTATIN/TRIAMCINOLONE CREAM 15 GM TUBE TP SCH (09:00)
[2018-11-27] MEDS ORDERED: CYANOCOBALAMIN 100 MCG TABLET PO SCH (09:00)
[2018-11-27] MEDS: NYSTATIN/TRIAMCINOLONE CREAM 15 GM TUBE TP SCH (10:29)
[2018-11-27 16:00] VITALS: BP 121/74
[2018-11-27] MEDS: BENZTROPINE MESYLATE 1 MG TABLET PO SCH (16:02)
[2018-11-27] MEDS: risperiDONE 2 MG TABLET PO SCH (16:02)
--- NOTE | 2018-11-27 17:23 | NUR ---
GPS: RECEIVED PATIENT ALERT ORIENTED X3, DENIES SI AND HI, PATIENT CALM AND COOPERATIVE, NOTED PATIENT HAS PILL ROLLING TREMORS WHEN HE TALKS, PATIENT FRIENDLY , TOOK SHOWER AND APPLIED NYSTATIN CREAM ON PATIENTS RASH, SEEN AND EXAMINED BY DR. CORDOVA, WITH ORDERS MADE AND CARRIED OUT, PATIENT TRANSFERED TO WHEELCHAIR AND ENJOYED STAYING IN THE ACTIVITY ROOM , WATCH TV WHILE TALKS WITH OTHER PATIENT, COMPLIANT WITH MEDICATION , WILL CONTINUE MONITOR
[2018-11-27] MEDS: SENNOSIDES 1 TABLET PO SCH (20:01)
[2018-11-27] MEDS: ATORVASTATIN 20 MG TABLET PO SCH (20:01)
[2018-11-27] MEDS: DIVALPROEX 250 MG TABLET.DR PO SCH (20:01)
[2018-11-27 20:38] VITALS: BP 119/77
[2018-11-27] MEDS: TEMAZEPAM 7.5 MG CAPSULE PO PRN (21:53)
[2018-11-28] MEDS: LORAZEPAM 1 MG TABLET PO PRN ×2 (00:07→14:31)
[2018-11-28 07:30] VITALS: BP 131/54
[2018-11-28] MEDS: DOCUSATE SODIUM 100 MG CAPSULE PO SCH ×2 (08:39→16:33)
[2018-11-28] MEDS: CHOLECALCIFEROL 1,000 UNIT TABLET PO SCH (08:39)
[2018-11-28] MEDS: AMANTADINE HCL 100 MG CAPSULE PO SCH ×2 (08:39→21:31)
[2018-11-28] MEDS: BENZTROPINE MESYLATE 1 MG TABLET PO SCH ×2 (08:39→16:34)
[2018-11-28] MEDS: risperiDONE 2 MG TABLET PO SCH ×3 (08:40→16:33)
[2018-11-28] MEDS: MEGESTROL ACETATE 20 MG TABLET PO SCH ×2 (08:40→16:33)
[2018-11-28] MEDS: DIVALPROEX 500 MG TABLET.DR PO SCH (08:40)
[2018-11-28] MEDS: CYANOCOBALAMIN 1,000 MCG TABLET PO SCH (08:40)
[2018-11-28] MEDS: PROPRANOLOL HCL 10 MG TABLET PO SCH (08:40)
[2018-11-28] MEDS: ASPIRIN 81 MG TAB.CHEW PO SCH (08:40)
[2018-11-28] MEDS: AMLODIPINE 5 MG TABLET PO SCH (08:40)
[2018-11-28] MEDS: NYSTATIN/TRIAMCINOLONE CREAM 15 GM TUBE TP SCH (08:41)
[2018-11-28] MEDS: POLYVINYL ALCOHOL OPHT DROPS 15 ML BOTTLE EACHEYE SCH (08:41)
[2018-11-28] MEDS: NICOTINE 21 MG/24HR PATCH TD SCH (08:41)
[2018-11-28] MEDS ORDERED: hydrALAZINE HCL 25 MG TABLET PO PRN (09:45)
[2018-11-28 16:00] VITALS: BP 116/67
[2018-11-28 20:00] VITALS: BP 108/55
[2018-11-28] MEDS: ATORVASTATIN 20 MG TABLET PO SCH (21:00)
[2018-11-28] MEDS: SENNOSIDES 1 TABLET PO SCH (21:31)
[2018-11-28] MEDS: DIVALPROEX 250 MG TABLET.DR PO SCH (21:31)
[2018-11-29 07:30] VITALS: BP 148/86
[2018-11-29] MEDS: POLYVINYL ALCOHOL OPHT DROPS 15 ML BOTTLE EACHEYE SCH (08:02)
[2018-11-29] MEDS: risperiDONE 2 MG TABLET PO SCH ×3 (08:03→16:30)
[2018-11-29] MEDS: NYSTATIN/TRIAMCINOLONE CREAM 15 GM TUBE TP SCH (08:03)
[2018-11-29] MEDS: ASPIRIN 81 MG TAB.CHEW PO SCH (08:03)
[2018-11-29] MEDS: BENZTROPINE MESYLATE 1 MG TABLET PO SCH ×2 (08:03→16:30)
[2018-11-29] MEDS: CHOLECALCIFEROL 1,000 UNIT TABLET PO SCH (08:03)
[2018-11-29] MEDS: DOCUSATE SODIUM 100 MG CAPSULE PO SCH ×2 (08:03→16:30)
[2018-11-29] MEDS: CYANOCOBALAMIN 1,000 MCG TABLET PO SCH (08:03)
[2018-11-29] MEDS: DIVALPROEX 500 MG TABLET.DR PO SCH (08:03)
[2018-11-29] MEDS: MEGESTROL ACETATE 20 MG TABLET PO SCH ×2 (08:04→16:30)
[2018-11-29] MEDS: NICOTINE 21 MG/24HR PATCH TD SCH (08:04)
[2018-11-29] MEDS: AMANTADINE HCL 100 MG CAPSULE PO SCH ×2 (08:04→20:08)
[2018-11-29] MEDS: AMLODIPINE 5 MG TABLET PO SCH (08:05)
[2018-11-29 15:30] VITALS: BP 146/79
--- NOTE | 2018-11-29 16:03 | NUR ---
Initial Discharge Planning Note: Patient currently resides at [facility] [[address], [place] [address]; [phone]]. Per Horologist, Krissy, patient will be accepted back at facility once he is ready. Postal Service Window Clerk attempted to contact patient's conservator Coral Dennis [[phone]] and left a voicemail. Postal Service Window Clerk will continue to meet with patient, and collaborate with patient, conservator, and MD on a safe and proper discharge plan.
[2018-11-29 20:00] VITALS: BP 103/61
[2018-11-29] MEDS: DIVALPROEX 250 MG TABLET.DR PO SCH (20:08)
[2018-11-29] MEDS: ATORVASTATIN 20 MG TABLET PO SCH (20:08)
[2018-11-29] MEDS: SENNOSIDES 1 TABLET PO SCH (20:08)
[2018-11-29] MEDS: TEMAZEPAM 7.5 MG CAPSULE PO PRN (23:51)
[2018-11-30 07:30] VITALS: BP 116/77
[2018-11-30] MEDS: ASPIRIN 81 MG TAB.CHEW PO SCH (08:32)
[2018-11-30] MEDS: DOCUSATE SODIUM 100 MG CAPSULE PO SCH ×2 (08:32→16:07)
[2018-11-30] MEDS: CHOLECALCIFEROL 1,000 UNIT TABLET PO SCH (08:32)
[2018-11-30] MEDS: DIVALPROEX 500 MG TABLET.DR PO SCH (08:32)
[2018-11-30] MEDS: NICOTINE 21 MG/24HR PATCH TD SCH (08:33)
[2018-11-30] MEDS: POLYVINYL ALCOHOL OPHT DROPS 15 ML BOTTLE EACHEYE SCH (08:33)
[2018-11-30] MEDS: risperiDONE 2 MG TABLET PO SCH ×3 (08:33→16:06)
[2018-11-30] MEDS: AMLODIPINE 5 MG TABLET PO SCH (08:33)
[2018-11-30] MEDS: CYANOCOBALAMIN 1,000 MCG TABLET PO SCH (08:33)
[2018-11-30] MEDS: BENZTROPINE MESYLATE 1 MG TABLET PO SCH ×2 (08:34→16:07)
[2018-11-30] MEDS: AMANTADINE HCL 100 MG CAPSULE PO SCH ×2 (08:34→20:32)
[2018-11-30] MEDS: MEGESTROL ACETATE 20 MG TABLET PO SCH ×2 (08:35→16:07)
[2018-11-30] MEDS: NYSTATIN/TRIAMCINOLONE CREAM 15 GM TUBE TP SCH (08:35)
--- NOTE | 2018-11-30 11:50 | NUR ---
FIREARMS REPORT: Plate Painter Apprentice completed and submitted a [employer] firearms report for 5250 Grave Disability certification. A copy of report has been placed in patient chart.
[2018-11-30] MEDS: LORAZEPAM 1 MG TABLET PO PRN ×2 (13:32→17:48)
--- NOTE | 2018-11-30 13:45 | NUR ---
patient refused Lab to be done.
[2018-11-30 15:34] VITALS: BP 105/67
--- NOTE | 2018-11-30 18:07 | NUR ---
GPS: RECEIVED PATIENT AOX3, DENIES PAIN , DENIES SI AND HI, PATIENT EASILY IRRITABLE, NEEDS ASSISTANCE SINCE PATIENT HAS TREMORS, ASSISTED WITH ADLS, COMPLIANT WITH MEDICATION, NO DISTRESS NOTED
[2018-11-30 20:08] VITALS: BP 105/70
[2018-11-30] MEDS: ATORVASTATIN 20 MG TABLET PO SCH (20:33)
[2018-11-30] MEDS: DIVALPROEX 250 MG TABLET.DR PO SCH (20:33)
[2018-11-30] MEDS: SENNOSIDES 1 TABLET PO SCH (20:33)
[2018-12-01] MEDS: LORAZEPAM 1 MG TABLET PO PRN ×3 (02:30→13:05)
[2018-12-01 07:30] VITALS: BP 132/72
[2018-12-01] MEDS: NYSTATIN/TRIAMCINOLONE CREAM 15 GM TUBE TP SCH (08:22)
[2018-12-01] MEDS: POLYVINYL ALCOHOL OPHT DROPS 15 ML BOTTLE EACHEYE SCH (08:22)
[2018-12-01] MEDS: CHOLECALCIFEROL 1,000 UNIT TABLET PO SCH (08:22)
[2018-12-01] MEDS: ASPIRIN 81 MG TAB.CHEW PO SCH (08:22)
[2018-12-01] MEDS: NICOTINE 21 MG/24HR PATCH TD SCH (08:22)
[2018-12-01] MEDS: CYANOCOBALAMIN 1,000 MCG TABLET PO SCH (08:22)
[2018-12-01] MEDS: DOCUSATE SODIUM 100 MG CAPSULE PO SCH ×2 (08:23→16:43)
[2018-12-01] MEDS: BENZTROPINE MESYLATE 1 MG TABLET PO SCH ×2 (08:23→16:46)
[2018-12-01] MEDS: AMANTADINE HCL 100 MG CAPSULE PO SCH ×2 (08:23→20:22)
[2018-12-01] MEDS: MEGESTROL ACETATE 20 MG TABLET PO SCH ×2 (08:24→16:45)
[2018-12-01] MEDS: DIVALPROEX 500 MG TABLET.DR PO SCH (08:24)
[2018-12-01] MEDS: risperiDONE 2 MG TABLET PO SCH ×3 (08:24→16:44)
[2018-12-01] MEDS: AMLODIPINE 5 MG TABLET PO SCH (08:25)
[2018-12-01 15:30] VITALS: BP 118/62
[2018-12-01] MEDS: SENNOSIDES 1 TABLET PO SCH (20:20)
[2018-12-01] MEDS: DIVALPROEX 250 MG TABLET.DR PO SCH (20:21)
[2018-12-01] MEDS: ATORVASTATIN 20 MG TABLET PO SCH (20:21)
[2018-12-01 20:37] VITALS: BP 131/90
[2018-12-02] MEDS: TEMAZEPAM 7.5 MG CAPSULE PO PRN (01:10)
[2018-12-02 07:30] VITALS: BP 115/68
[2018-12-02] MEDS: POLYVINYL ALCOHOL OPHT DROPS 15 ML BOTTLE EACHEYE SCH (08:57)
[2018-12-02] MEDS: CHOLECALCIFEROL 1,000 UNIT TABLET PO SCH (08:58)
[2018-12-02] MEDS: AMANTADINE HCL 100 MG CAPSULE PO SCH ×2 (08:58→20:53)
[2018-12-02] MEDS: ASPIRIN 81 MG TAB.CHEW PO SCH (08:58)
[2018-12-02] MEDS: CYANOCOBALAMIN 1,000 MCG TABLET PO SCH (08:58)
[2018-12-02] MEDS: DIVALPROEX 500 MG TABLET.DR PO SCH ×2 (08:59→20:53)
[2018-12-02] MEDS: AMLODIPINE 5 MG TABLET PO SCH (08:59)
[2018-12-02] MEDS: DOCUSATE SODIUM 100 MG CAPSULE PO SCH ×2 (08:59→17:09)
[2018-12-02] MEDS: BENZTROPINE MESYLATE 1 MG TABLET PO SCH ×2 (08:59→17:09)
[2018-12-02] MEDS: MEGESTROL ACETATE 20 MG TABLET PO SCH ×2 (08:59→17:09)
[2018-12-02] MEDS: risperiDONE 2 MG TABLET PO SCH ×3 (09:00→17:09)
[2018-12-02] MEDS: NICOTINE 21 MG/24HR PATCH TD SCH (09:00)
[2018-12-02] MEDS: NYSTATIN/TRIAMCINOLONE CREAM 15 GM TUBE TP SCH (09:19)
--- NOTE | 2018-12-02 13:30 | NUR ---
Gps/Cecilia Mason FOOD SERVICE ORDER CLERK was informed of the generalized rashes to torso,thighs, arms back lower ext. buttocks, patient denies itching, cream applied as ordered(nystatin) .
[2018-12-02 16:00] VITALS: BP 102/62
--- NOTE | 2018-12-02 20:00 | NUR ---
Received patient in his bed. he is noted awake a/o x 3. he is noted calm and pleasant upon approached, pt able to verbalized feelings. no aggressive/combative bx noted at time, V/S stable at this time. pt is reassured for his safety. safety and fall precaution in place. will continue to monitor.
[2018-12-02] MEDS: ATORVASTATIN 20 MG TABLET PO SCH (20:53)
[2018-12-02] MEDS: SENNOSIDES 1 TABLET PO SCH (20:53)
[2018-12-02] MEDS ORDERED: DIVALPROEX 250 MG TABLET.DR PO SCH (21:00)
[2018-12-02 21:14] VITALS: BP 112/64
--- NOTE | 2018-12-02 22:30 | NUR ---
PATIENT WAS TRANSFERRED TO THIRD FLOOR MEDICAL SURGICAL FLOOR AN OVERFLOWED. PATIENT WAS TRANSFERRED IN STABLE CONDITION TO ROOM 323. REPORT WAS GIVEN TO TIMOTHY TRIPP.
--- NOTE | 2018-12-02 22:31 | NUR ---
RECEIVED PT FROM [facility]. PT IN STABLE CONDITION. NO S.I. PT CALM WHEN APPROACHED. PT SHOWS NO SIGNS FO ACUTE DISTRESS. PT OBSERVED KEEP ON REPEATING HIMSELF. SKIN ASSESSMENT DONE WITH GENERALIZED REDDENED RASH .SNF ASSESSMENT DONE. SITTER AT BEDSIDE FOR SAFETY. WILL CONTINUE TO MONITOR.
[2018-12-02 23:24] VITALS: BP 134/80
[2018-12-03] MEDS: LORAZEPAM 1 MG TABLET PO PRN (03:53)
--- NOTE | 2018-12-03 04:00 | NUR ---
Patient is becoming agitated, throwing pillows around, trying to dismantle the bed, verbally abusive to the sitter, shouting. Offered snacks and drinks, attempted to redirect with no result. Offered Ativan. Patient agreed. Took Ativan PO 1mg with apple juice. Comfort and safety provided.
[2018-12-03 04:49] VITALS: BP 138/73
--- NOTE | 2018-12-03 06:49 | NUR ---
patient slept 3-4 hours after Ativan. No BM, only urine output. Sitter is at bedside, comfort and safety provided.
--- NOTE | 2018-12-03 07:20 | NUR ---
RECEIVED PATIENT SLEEPING IN BED, SITTER AT BEDSIDE. BED IN LOWEST POSITION, SIDE RAILS UP X3, CALL LIGHT WITHIN REACH. WILL CONTINUE TO MONITOR.
[2018-12-03 08:19] VITALS: BP 169/79
[2018-12-03] MEDS: ASPIRIN 81 MG TAB.CHEW PO SCH (08:35)
[2018-12-03] MEDS: MEGESTROL ACETATE 20 MG TABLET PO SCH ×2 (08:35→16:50)
[2018-12-03] MEDS: BENZTROPINE MESYLATE 1 MG TABLET PO SCH ×2 (08:35→16:50)
[2018-12-03] MEDS: DIVALPROEX 500 MG TABLET.DR PO SCH ×2 (08:35→20:09)
[2018-12-03] MEDS: POLYVINYL ALCOHOL OPHT DROPS 15 ML BOTTLE EACHEYE SCH (08:35)
[2018-12-03] MEDS: DOCUSATE SODIUM 100 MG CAPSULE PO SCH ×2 (08:35→16:50)
[2018-12-03] MEDS: AMANTADINE HCL 100 MG CAPSULE PO SCH ×2 (08:36→20:11)
[2018-12-03] MEDS: AMLODIPINE 5 MG TABLET PO SCH (08:36)
[2018-12-03] MEDS: CYANOCOBALAMIN 1,000 MCG TABLET PO SCH (08:36)
[2018-12-03] MEDS: risperiDONE 2 MG TABLET PO SCH ×3 (08:36→16:50)
[2018-12-03] MEDS: NICOTINE 21 MG/24HR PATCH TD SCH (08:36)
[2018-12-03] MEDS: CHOLECALCIFEROL 1,000 UNIT TABLET PO SCH (08:36)
[2018-12-03] MEDS: NYSTATIN/TRIAMCINOLONE CREAM 15 GM TUBE TP SCH (08:37)
[2018-12-03 10:41] VITALS: BP 146/76
[2018-12-03] MEDS ORDERED: PERMETHRIN 5% CREAM 60 GM TUBE TP ONE (12:00)
[2018-12-03 14:14] VITALS: BP 126/62
--- NOTE | 2018-12-03 18:15 | NUR ---
PATIENT RESTED INTERMITTENTLY THROUGHOUT DAY, NO DISTRESS NOTED. PATIENT HAD NO COMBATIVE EPISODES TODAY, PATIENT TOOK ALL PRESCRIBED MEDICATIONS. SITTER AT BEDSIDE.
--- NOTE | 2018-12-03 19:30 | NUR ---
RECEIVED PT ON BED. PT PLEASANT WHEN APPROACH. 1;1 SITTER PROVIDED. SAFETY AND COMFORT PROVIDED. WILL CONTINUE TO MONITOR.
[2018-12-03 19:57] VITALS: BP 128/72
[2018-12-03] MEDS: ATORVASTATIN 20 MG TABLET PO SCH (20:09)
[2018-12-03] MEDS: SENNOSIDES 1 TABLET PO SCH (20:09)
[2018-12-03 21:02] VITALS: BP 128/72
[2018-12-04] MEDS: TEMAZEPAM 7.5 MG CAPSULE PO PRN ×2 (00:06→23:37)
[2018-12-04 04:00] VITALS: BP 138/84
--- NOTE | 2018-12-04 05:50 | NUR ---
PT SLEPT INTERMITTENTLY. PT SHOWS NO SIGNS OF ACUTE DISTRESS. PT COOPERATIVE WITH CARE. PT TURNED AND REPOSITIONED. IV INTACT. PRESCRIBED MEDICATION GIVEN AND PT TOLERATED IT WELL. PT GIVEN BED BATH TO TAKE OFF THE ELIMITE CREAM. SAFETY AND COMFORT PROVIDED.WILL ENDORSE TO INCOMING NURSE FOR CONTINUITY OF CARE.
[2018-12-04 07:18] VITALS: BP 132/80
--- NOTE | 2018-12-04 08:00 | NUR ---
PATIENT IDPT SHOWS NO SIGNS OF ACUTE DISTRESS. PT COOPERATIVE WITH CARE. PT TURNED AND REPOSITIONED. IV INTACT. PRESCRIBED MEDICATION GIVEN AND PT TOLERATED IT WELL. PT GIVEN BED BATH TO TAKE OFF THE ELIMITE CREAM. SAFETY AND COMFORT PROVIDED.WILL ENDORSE TO INCOMING NURSE FOR CONTINUITY OF CARE. Addendum: 12/04/18 at 1247 by CHAYO HITCHCOCK RN PT IS AWAKE, SHOWS NO SIGNS OF ACUTE DISTRESS. SAFETY AND COMFORT PROVIDED. ODALIS 1'1 FOR SAFETY
[2018-12-04] MEDS: CHOLECALCIFEROL 1,000 UNIT TABLET PO SCH (08:21)
[2018-12-04] MEDS: DOCUSATE SODIUM 100 MG CAPSULE PO SCH ×2 (08:21→16:22)
[2018-12-04] MEDS: CYANOCOBALAMIN 1,000 MCG TABLET PO SCH (08:21)
[2018-12-04] MEDS: MEGESTROL ACETATE 20 MG TABLET PO SCH ×2 (08:22→16:22)
[2018-12-04] MEDS: DIVALPROEX 500 MG TABLET.DR PO SCH ×2 (08:23→20:11)
[2018-12-04] MEDS: risperiDONE 2 MG TABLET PO SCH ×3 (08:23→16:21)
[2018-12-04] MEDS: AMLODIPINE 5 MG TABLET PO SCH (08:24)
[2018-12-04] MEDS: BENZTROPINE MESYLATE 1 MG TABLET PO SCH ×2 (08:24→16:21)
[2018-12-04] MEDS: ASPIRIN 81 MG TAB.CHEW PO SCH (08:24)
[2018-12-04] MEDS: AMANTADINE HCL 100 MG CAPSULE PO SCH ×2 (08:25→20:14)
[2018-12-04] MEDS: NICOTINE 21 MG/24HR PATCH TD SCH (08:32)
[2018-12-04] MEDS: NYSTATIN/TRIAMCINOLONE CREAM 15 GM TUBE TP SCH (08:39)
[2018-12-04] MEDS: POLYVINYL ALCOHOL OPHT DROPS 15 ML BOTTLE EACHEYE SCH (08:39)
[2018-12-04 11:06] VITALS: BP 137/74
[2018-12-04 15:15] VITALS: BP 122/70
--- NOTE | 2018-12-04 17:57 | NUR ---
PT IS SLEEPING INTERMID., SHOWS NO SIGNS OF ACUTE DISTRESS. COOPERATIVE WITH CARE, TOOK ALL THE MEDS, NISTATIN CREAM APPLIED IN THE AM SAFETY AND COMFORT PROVIDED. SITTER 1'1 FOR SAFETY
--- NOTE | 2018-12-04 19:20 | NUR ---
RECEIVED PT AWAKE ON BED. PT PLEASANT WHEN APPROACH. SITTER AT BEDSIDE. PT IN NO ACUTE DISTRESS. PT GETTING ANXIOUS. SAFETY AND COMFORT PROVIDED. WILL CONTINUE TO MONITOR.
[2018-12-04] MEDS: LORAZEPAM 1 MG TABLET PO PRN (19:34)
[2018-12-04] MEDS: SENNOSIDES 1 TABLET PO SCH (20:11)
[2018-12-04] MEDS: ATORVASTATIN 20 MG TABLET PO SCH (20:11)
[2018-12-04 20:21] VITALS: BP 107/63
[2018-12-05 05:18] VITALS: BP 140/76
--- NOTE | 2018-12-05 06:30 | NUR ---
PT SLEPT INTERMITTENTLY . PT SHOWS NO ACUTE DISTRESS. SITTER PROVIDED. PRESCRIBED MEDICATION GIVEN AND PT TOLERATED IT WELL. PT GIVEN ATIVAN AT 1934H BECAUSE PT SHOWS ANXIOUS AND KEEP REPEATING HIMSELF,. PT REFUSED HIS SENOKOT MEDICATION PER PT"HE POOPED A LOT ALREADY" . SAFETY AND COMFORT PROVIDED. ALL NEEDS ARE MET. WILL ENDORSE ACCORDINGLY TO INCOMING NURSE FOR CONTINUITY OF CARE.
[2018-12-05 07:56] VITALS: BP 114/78
[2018-12-05] MEDS: CHOLECALCIFEROL 1,000 UNIT TABLET PO SCH (08:01)
[2018-12-05] MEDS: DOCUSATE SODIUM 100 MG CAPSULE PO SCH ×2 (08:01→16:30)
[2018-12-05] MEDS: LORAZEPAM 1 MG TABLET PO PRN (08:01)
[2018-12-05] MEDS: BENZTROPINE MESYLATE 1 MG TABLET PO SCH ×2 (08:01→16:33)
[2018-12-05] MEDS: ASPIRIN 81 MG TAB.CHEW PO SCH (08:01)
[2018-12-05] MEDS: AMLODIPINE 5 MG TABLET PO SCH (08:02)
[2018-12-05] MEDS: CYANOCOBALAMIN 1,000 MCG TABLET PO SCH (08:02)
[2018-12-05] MEDS: DIVALPROEX 500 MG TABLET.DR PO SCH ×2 (08:02→20:55)
[2018-12-05] MEDS: risperiDONE 2 MG TABLET PO SCH ×3 (08:02→16:33)
[2018-12-05] MEDS: AMANTADINE HCL 100 MG CAPSULE PO SCH ×2 (08:03→20:55)
[2018-12-05] MEDS: MEGESTROL ACETATE 20 MG TABLET PO SCH ×2 (08:03→16:33)
[2018-12-05] MEDS: NICOTINE 21 MG/24HR PATCH TD SCH (08:04)
[2018-12-05] MEDS: POLYVINYL ALCOHOL OPHT DROPS 15 ML BOTTLE EACHEYE SCH (08:41)
[2018-12-05] MEDS: NYSTATIN/TRIAMCINOLONE CREAM 15 GM TUBE TP SCH (10:14)
[2018-12-05 10:42] VITALS: BP 118/62
[2018-12-05 15:06] VITALS: BP 119/70
[2018-12-05 20:04] VITALS: BP 127/80
[2018-12-05] MEDS: ATORVASTATIN 20 MG TABLET PO SCH (20:55)
[2018-12-05] MEDS: SENNOSIDES 1 TABLET PO SCH (20:55)
--- NOTE | 2018-12-05 23:19 | NUR ---
RECEIVED PT AWAKE ON BED. PT PLEASANT WHEN APPROACH. NO SIGNS OF ACUTE DISTRESS. SITTER PROVIDED. NO SIGNS OF ANXIETY AND COMBATIVE BEHAVIOR. SAFETY AND COMFORT PROVIDED. WILL CONTINUE TO MONITOR.
[2018-12-06] MEDS: TEMAZEPAM 7.5 MG CAPSULE PO PRN (00:50)
[2018-12-06] MEDS ORDERED: Z GUARD REMEDY PASTE 57 GM TUBE TOP PRN (04:00)
--- NOTE | 2018-12-06 06:27 | NUR ---
PT SLEPT INTERMITTENTLY. PT SHOWS NO SIGNS OF ACUTE DISTRESS.SITTER PROVIDED. PRESCRIBED MEDICATION GIVEN AND PT TOLERATED IT WELL. PT GIVEN TEMAZEPAM PER PT REQUEST. PT TOLERATED IT WELL AND SLEEPING COMFORTABLY AFTER AN HOUR. SAFETY AND COMFORT PROVIDED. ALL NEEDS ARE MET. WILL ENDORSE ACCORDINGLY TO INCOMING NURSE FOR CONTINUITY OF CARE.
--- NOTE | 2018-12-06 07:28 | NUR ---
patient is in bed, awake, no sob, resp even nonlabored,no acute distress noted at this time
[2018-12-06] MEDS: risperiDONE 2 MG TABLET PO SCH ×3 (08:51→16:12)
[2018-12-06] MEDS: AMANTADINE HCL 100 MG CAPSULE PO SCH ×2 (08:51→21:02)
[2018-12-06] MEDS: MEGESTROL ACETATE 20 MG TABLET PO SCH ×2 (08:52→16:12)
[2018-12-06] MEDS: CYANOCOBALAMIN 1,000 MCG TABLET PO SCH (08:52)
[2018-12-06] MEDS: DIVALPROEX 500 MG TABLET.DR PO SCH ×2 (08:52→21:02)
[2018-12-06] MEDS: NICOTINE 21 MG/24HR PATCH TD SCH (08:53)
[2018-12-06] MEDS: ASPIRIN 81 MG TAB.CHEW PO SCH (08:53)
[2018-12-06] MEDS: DOCUSATE SODIUM 100 MG CAPSULE PO SCH ×2 (08:53→16:14)
[2018-12-06] MEDS: CHOLECALCIFEROL 1,000 UNIT TABLET PO SCH (08:53)
[2018-12-06] MEDS: BENZTROPINE MESYLATE 1 MG TABLET PO SCH ×2 (08:53→16:13)
[2018-12-06] MEDS: POLYVINYL ALCOHOL OPHT DROPS 15 ML BOTTLE EACHEYE SCH (08:54)
[2018-12-06] MEDS: NYSTATIN/TRIAMCINOLONE CREAM 15 GM TUBE TP SCH (08:55)
[2018-12-06] MEDS: AMLODIPINE 5 MG TABLET PO SCH (08:55)
[2018-12-06 11:33] VITALS: BP 103/76
--- NOTE | 2018-12-06 12:57 | NUR ---
Social Work Note: Front Office Clerk attempted to reach patient's conservator - Coral Dennis [[phone]], [facility] Office of Public Guardian to coordinate discharge planning. Front Office Clerk left vmail and will re-attempt.
[2018-12-06] MEDS ORDERED: DIVALPROEX 500 MG TABLET.DR PO SCH (13:00)
[2018-12-06] MEDS: DIVALPROEX 250 MG TABLET.DR PO SCH ×2 (13:21→16:13)
--- NOTE | 2018-12-06 15:07 | NUR ---
SPOKE TO MAC FROM PATHOLOGY PATIENT IS NEGATIVE FOR SCABIES
[2018-12-06] MEDS: LORAZEPAM 1 MG TABLET PO PRN (15:28)
[2018-12-06 15:30] VITALS: BP 139/88
--- NOTE | 2018-12-06 17:04 | NUR ---
DISCONTINUED CONTACT ISOLATION, RESULT IS NEGATIVE FOR SCABIES.
--- NOTE | 2018-12-06 17:15 | NUR ---
PATIENT IS ALERT, ORIENTED X1-2, NO SOB, RESP EVEN NONLABORED,SKIN WARM AND DRY TO TOUCH, NO ACUTE DISTRESS NOTED, NO AGGRESSIVE OR COMBATIVE BEHAVIORS NOTED, NOTED WITH SOME YELLING, ATIVAN GIVEN ORDERED, EFFECTIVE, PATIENT TOOK ALL HIS MEDICATIONS AND TOLERATED WELL, COMPLIANT WITH CARE
[2018-12-06 19:55] VITALS: BP 140/86
[2018-12-06] MEDS: ATORVASTATIN 20 MG TABLET PO SCH (21:02)
[2018-12-06] MEDS: SENNOSIDES 1 TABLET PO SCH (21:02)
--- NOTE | 2018-12-06 23:23 | NUR ---
RECEIVED PT AWAKE ON BED. PT PLEASANT WHEN APPROACH. PT SHOWS NO SIGNS OF ACUTE DISTRESS. SITTER PROVIDED. NO ISOLATION NEEDED. SAFETY AND COMFORT PROVIDED.WILL CONTINUE TO MONITOR.
[2018-12-07] MEDS: LORAZEPAM 1 MG TABLET PO PRN ×2 (00:09→08:18)
[2018-12-07] MEDS: TEMAZEPAM 7.5 MG CAPSULE PO PRN (00:54)
--- NOTE | 2018-12-07 06:10 | NUR ---
PT SLEPT 3 HOURS . PT SHOWS NO SIGNS OF ACUTE DISTRESS. IV INTACT. PRESCRIBED MEDICATION GIVEN AND PT TOLERATED IT WELL. SITTER AT BEDSIDE. PT GIVEN ATIVAN AT 0009H BECAUSE PT BEING ANXIOUS, YELLING, CURSING , IRRITATED WITH THE REMOTE CONTROL. PT AFTER 2 HOURS PT IMPROVED. PT GIVEN RESTORIL PT REQUEST. ALL NEEDS ARE MET. WILL ENDORSE ACCORDINGLY TO INCOMING NURSE FOR CONTINUITY OF CARE.
--- NOTE | 2018-12-07 07:20 | NUR ---
RECEIVED REPORT, PATIENT LAYING IN BED, AWAKE BUT CONFUSED. NO ACUTE DISTRESS NOTED AT THIS TIME. BED IN LOWEST POSITION, SIDE RAILS UP X2, CALL LIGHT WITHIN REACH. SITTER AT BEDSIDE. WILL CONTINUE TO MONITOR.
[2018-12-07 08:00] VITALS: BP 124/87
[2018-12-07] MEDS: POLYVINYL ALCOHOL OPHT DROPS 15 ML BOTTLE EACHEYE SCH (08:16)
[2018-12-07] MEDS: DOCUSATE SODIUM 100 MG CAPSULE PO SCH ×2 (08:16→08:26)
[2018-12-07] MEDS: BENZTROPINE MESYLATE 1 MG TABLET PO SCH (08:16)
[2018-12-07] MEDS: ASPIRIN 81 MG TAB.CHEW PO SCH (08:16)
[2018-12-07 08:17] VITALS: BP 124/87
[2018-12-07] MEDS: risperiDONE 2 MG TABLET PO SCH ×2 (08:17→13:21)
[2018-12-07] MEDS: MEGESTROL ACETATE 20 MG TABLET PO SCH (08:17)
[2018-12-07] MEDS: DIVALPROEX 250 MG TABLET.DR PO SCH ×2 (08:17→13:21)
[2018-12-07] MEDS: CYANOCOBALAMIN 1,000 MCG TABLET PO SCH (08:17)
[2018-12-07] MEDS: CHOLECALCIFEROL 1,000 UNIT TABLET PO SCH (08:17)
[2018-12-07] MEDS: AMLODIPINE 5 MG TABLET PO SCH (08:17)
[2018-12-07] MEDS: AMANTADINE HCL 100 MG CAPSULE PO SCH (08:17)
[2018-12-07] MEDS: NICOTINE 21 MG/24HR PATCH TD SCH (08:18)
[2018-12-07] MEDS: NYSTATIN/TRIAMCINOLONE CREAM 15 GM TUBE TP SCH (08:25)
--- NOTE | 2018-12-07 11:43 | NUR ---
Discharge Note: Patient will be discharged to [facility] [[address], [place] [address]; ]. Patient is A&Ox4, denies suicidal ideation, and is able to plan for self-care. [facility] Vat Worker spoke with Duane, Specialty Finishing Utility Person, who stated patient will be accepted at facility today. Please arrange ambulance for this patient by 2:00pm. Patient aware and agreeable with discharge plan. Patient will follow up with Dr. Cornell, Word Processor Operator and Dr. Rose, Psychiatrist at [facility]. [facility] Vat Worker attempted to discuss patient�s discharge to Coral aldrich [[phone]] and she is aware and agreeable with discharge plan. Patient has also been provided with mental health resources including [facility] Crisis Line [ ], Yael Kumar [ ], and the National Suicide Prevention Lifeline [ ]. Addendum: 12/07/18 at 1229 by MAGNUS MCMAHAN [facility] Vat Worker attempted to discuss patient�s discharge with Coral aldrich [[phone]] but unable to reach her after three attempts � [facility] Vat Worker left vmail informing of patient�s discharge plan, location and contact information of facility.
--- NOTE | 2018-12-07 14:20 | NUR ---
GAVE REPORT TO COOPER AGUIRRE AT [facility]. REPORT GIVEN TO AMBULANCE. PATIENT TRANSFERRED FROM BED TO [facility] WITH NO COMPLICATIONS. NO DISTRESS NOTED.
== END 2018-12-07 14:20 | DRG 885 ==
LOC: ER 17:47 → GPS 20:07 → GPSOV3 12-02 21:46
PROVIDERS: ADMIT Psychiatry & Neurology Psychiatry; ATTEND Internal Medicine
DX: F25.0 Schizoaffective disorder, bipolar type (principal); F01.51 Vascular dementia, unspecified severity, with behavioral disturbance; E78.5 Hyperlipidemia, unspecified; K21.9 Gastro-esophageal reflux disease without esophagitis; G20 Parkinson's disease; R26.81 Unsteadiness on feet; F17.210 Nicotine dependence, cigarettes, uncomplicated; F41.9 Anxiety disorder, unspecified; G40.909 Epilepsy, unspecified, not intractable, without status epilepticus; I11.9 Hypertensive heart disease without heart failure; H40.9 Unspecified glaucoma; N40.0 Benign prostatic hyperplasia without lower urinary tract symptoms; L30.9 Dermatitis, unspecified; Z79.82 Long term (current) use of aspirin; Z79.899 Other long term (current) drug therapy; Z88.0 Allergy status to penicillin; Z91.19 Patient's noncompliance with other medical treatment and regimen; K59.00 Constipation, unspecified; I70.0 Atherosclerosis of aorta; Z87.440 Personal history of urinary (tract) infections
CPT/HCPCS: 36415; 71045; 80164; 84443; 85025; 93005; A4663; G0480; G0480-TC; J3490

== ENCOUNTER 2019-02-19 21:45 | Inpatient (IN) | payer MEDICARE, MEDICAID ==
[~2019-02-19] VITALS: Ht 182.9 cm; Wt 75.6 kg
[~2019-02-19 21:45] MED LIST changes: +CARB15DR99 EACHEYE; +NYST15CR15 TP; +POLY15DR31 OP; -POLY15DR57 OP; -PROP20TA19 PO
[2019-02-19] MEDS ORDERED: LIDOCAINE HCL 1% 20 ML VIAL IJ ONE (22:30)
[2019-02-19] MEDS ORDERED: LIDOCAINE 1%-EPI 1:100,000 20 ML VIAL ONE (22:45)
[2019-02-19 22:51] LABS: BASOPHILS # (AUTO) 0.1 K/uL (0.0-8.0); BASOPHILS % (AUTO) 0.9 % (0.0-2.0); EOSINOPHILS # (AUTO) 0.2 K/uL (0.0-0.7); EOSINOPHILS % (AUTO) 1.8 % (0.0-7.0); HEMOGLOBIN 12.8 g/dL (12.5-16.3); LYMPHOCYTES # (AUTO) 0.9 K/uL (20.0-40.0); LYMPHOCYTES % (AUTO) 9.4 % (20.5-51.5); MEAN CORPUSCULAR HEMOGLOBIN 30.9 uug (23.8-33.4); MEAN CORPUSCULAR HGB CONC 33 g/dL (32.5-36.3); MEAN CORPUSCULAR VOLUME 94.1 fL (73.0-96.2); MONOCYTES # (AUTO) 0.7 K/uL (2.0-10.0); MONOCYTES % (AUTO) 7.5 % (0.0-11.0); NEUTROPHILS # (AUTO) 7.5 K/uL (1.8-8.9); NEUTROPHILS % (AUTO) 80.4 % (38.5-71.5); PLATELET COUNT (AUTO) 153 K/uL (152-348); RED BLOOD CELL COUNT(AUTO) 4.15 MIL/uL (4.06-5.63); WHITE BLOOD COUNT (AUTO) 9.3 K/uL (3.6-10.2)
[2019-02-19 23:04] LABS: BILIRUBIN,TOTAL 0.4 mg/dL (0.2-1.0); CREATININE 1.1 mg/dL (0.6-1.3)
[2019-02-19 23:05] LABS: BILIRUBIN,DIRECT 0.2 mg/dL (0.0-0.2); TOTAL PROTEIN, SERUM 6.3 g/dL (6.4-8.2)
[2019-02-19 23:21] LABS: POTASSIUM 2.7 mmol/L (3.5-5.1)
[2019-02-19 23:21] LABS: *BILIRUBIN,URIN NEGATIVE (NEGATIVE); *BLOOD, URINE NEGATIVE (NEGATIVE); *CLARITY,URINE HAZY (CLEAR); *COLOR,URINE YELLOW (YELLOW); *KETONES,URINE TRACE (NEGATIVE); LEUKOCYTE ESTERASE ,URINE 1+ (NEGATIVE); NITRITE, URINE POSITIVE (NEGATIVE); UGLUCOSE NEGATIVE (NEGATIVE)
[2019-02-19 23:29] LABS: BACTERIA,URINE MANY /HPF (NONE SEEN); SQUAMOUS EPITHELIAL CELL,UR FEW /HPF (NONE SEEN); WBC,URINE 50-80 /HPF (0-3)
[2019-02-20] MEDS ORDERED: POTASSIUM CHLORIDE 20 MEQ TAB.PRT.SR PO ONE
[2019-02-20] MEDS ORDERED: POTASSIUM CHLORIDE 10 MEQ TAB.PRT.SR ONE (00:59)
[2019-02-20] MEDS ORDERED: CHOL100062 PO (01:01)
[2019-02-20] MEDS ORDERED: DIVA250T4 PO (01:01)
[2019-02-20] MEDS ORDERED: BENZ1TAB7 PO (01:01)
[2019-02-20] MEDS ORDERED: DIVA500T4 PO (01:01)
[2019-02-20] MEDS ORDERED: HYDR-894 PO (01:01)
[2019-02-20] MEDS ORDERED: RISP2TAB5 PO (01:01)
[2019-02-20] MEDS ORDERED: CYAN-51 PO (01:01)
[2019-02-20] MEDS ORDERED: ONDANSETRON 4 MG/2 ML VIAL IV PRN (01:15)
[2019-02-20] MEDS ORDERED: MAGNESIUM HYDROXIDE 30 ML LIQUID UDC PO PRN (01:15)
[2019-02-20] MEDS ORDERED: IV NS 1000 ML 1,000 ML IV PRN (01:15)
[2019-02-20] MEDS: HYDROCODONE/APAP 5-325MG TABLET PO PRN (03:41)
[2019-02-20 05:06] VITALS: BP 146/81
[2019-02-20] MEDS: CEFTRIAXONE 1 G in IV DEXTROSE 5% 50 ML IV SCH ×2 (05:08→20:15)
[2019-02-20 06:00] LABS: BASOPHILS % (AUTO) 0.4 % (0.0-2.0); EOSINOPHILS # (AUTO) 0.2 K/uL (0.0-0.7); EOSINOPHILS % (AUTO) 1.9 % (0.0-7.0); HEMATOCRIT 37.2 % (36.7-47.1); HEMOGLOBIN 12.4 g/dL (12.5-16.3); LYMPHOCYTES # (AUTO) 0.5 K/uL (20.0-40.0); LYMPHOCYTES % (AUTO) 6.1 % (20.5-51.5); MEAN CORPUSCULAR HEMOGLOBIN 31.2 uug (23.8-33.4); MEAN CORPUSCULAR HGB CONC 33 g/dL (32.5-36.3); MEAN CORPUSCULAR VOLUME 93.5 fL (73.0-96.2); MONOCYTES # (AUTO) 0.7 K/uL (2.0-10.0); NEUTROPHILS # (AUTO) 7.5 K/uL (1.8-8.9); NEUTROPHILS % (AUTO) 83.6 % (38.5-71.5); PLATELET COUNT (AUTO) 143 K/uL (152-348); RED BLOOD CELL COUNT(AUTO) 3.98 MIL/uL (4.06-5.63)
[2019-02-20 06:29] LABS: CREATININE 0.9 mg/dL (0.6-1.3); MAGNESIUM 1.5 mg/dL (1.8-2.4); PHOSPHOROUS 2.6 mg/dL (2.5-4.9); POTASSIUM 2.9 mmol/L (3.5-5.1)
[2019-02-20] MEDS: ENOXAPARIN SODIUM 40 MG/0.4 ML DISP.SYRIN SQ SCH (08:14)
[2019-02-20] MEDS: POTASSIUM CHLORIDE 40 MEQ in IV D5 1/2 NS 1000 ML 1,000 ML IV PRN ×2 (10:18→23:56)
[2019-02-20 11:42] VITALS: BP 146/86
[2019-02-20 11:43] VITALS: BP 144/89
[2019-02-20 12:00] VITALS: BP 143/74
[2019-02-20] MEDS: MAGNESIUM SULFATE/D5W 100 ML IV SCH ×2 (14:49→15:35)
[2019-02-20] MEDS ORDERED: Medication Not On Formulary EA (Acetaminophen (Tylenol) 650 MG) PO SCH (15:30)
[2019-02-20] MEDS: hydrALAZINE HCL 25 MG TABLET PO SCH ×2 (15:47→20:34)
[2019-02-20] MEDS: AMLODIPINE 5 MG TABLET PO SCH (15:47)
[2019-02-20 16:03] VITALS: BP 174/98
[2019-02-20] MEDS: DIVALPROEX 250 MG TABLET.DR PO SCH (17:31)
[2019-02-20] MEDS: Z GUARD REMEDY PASTE 57 GM TUBE TOP PRN (17:31)
[2019-02-20] MEDS: AMANTADINE HCL 100 MG CAPSULE PO SCH (17:31)
[2019-02-20] MEDS: DOCUSATE SODIUM 100 MG CAPSULE PO SCH (17:31)
[2019-02-20] MEDS: risperiDONE 2 MG TABLET PO SCH (17:31)
[2019-02-20] MEDS: BENZTROPINE MESYLATE 1 MG TABLET PO SCH (17:31)
[2019-02-20] MEDS: SENNOSIDES 1 TABLET PO SCH (20:15)
[2019-02-20] MEDS: ATORVASTATIN 20 MG TABLET PO SCH (20:15)
[2019-02-20] MEDS: DIVALPROEX ER 500 MG TAB.SR.24H PO SCH (20:16)
[2019-02-20 20:18] VITALS: BP 137/71
[2019-02-20] MEDS ORDERED: MAGNESIUM HYDROXIDE 30 ML LIQUID UDC PO SCH (21:00)
[2019-02-21] VITALS: BP 145/75
[2019-02-21] MEDS: hydrALAZINE HCL 25 MG TABLET PO SCH ×2 (02:33→08:51)
[2019-02-21] MEDS: AMLODIPINE 5 MG TABLET PO SCH ×2 (02:34→21:13)
[2019-02-21 04:00] VITALS: BP 145/74
[2019-02-21 06:45] LABS: BASOPHILS % (AUTO) 0.3 % (0.0-2.0); EOSINOPHILS # (AUTO) 0.3 K/uL (0.0-0.7); EOSINOPHILS % (AUTO) 3.1 % (0.0-7.0); HEMATOCRIT 38.7 % (36.7-47.1); HEMOGLOBIN 12.7 g/dL (12.5-16.3); LYMPHOCYTES % (AUTO) 10.6 % (20.5-51.5); MEAN CORPUSCULAR HEMOGLOBIN 30.7 uug (23.8-33.4); MEAN CORPUSCULAR HGB CONC 33 g/dL (32.5-36.3); MEAN CORPUSCULAR VOLUME 93.9 fL (73.0-96.2); MONOCYTES # (AUTO) 0.9 K/uL (2.0-10.0); MONOCYTES % (AUTO) 9.8 % (0.0-11.0); NEUTROPHILS # (AUTO) 7.3 K/uL (1.8-8.9); NEUTROPHILS % (AUTO) 76.2 % (38.5-71.5); PLATELET COUNT (AUTO) 139 K/uL (152-348); RED BLOOD CELL COUNT(AUTO) 4.12 MIL/uL (4.06-5.63); WHITE BLOOD COUNT (AUTO) 9.7 K/uL (3.6-10.2)
[2019-02-21 06:52] LABS: CREATININE 0.9 mg/dL (0.6-1.3); POTASSIUM 3.5 mmol/L (3.5-5.1)
[2019-02-21] MEDS ORDERED: NEUTRA PHOS PACKET PO ONE (08:45)
[2019-02-21] MEDS: DOCUSATE SODIUM 100 MG CAPSULE PO SCH ×2 (08:48→16:32)
[2019-02-21] MEDS: risperiDONE 2 MG TABLET PO SCH ×3 (08:48→16:33)
[2019-02-21] MEDS: ASPIRIN 81 MG TAB.CHEW PO SCH (08:48)
[2019-02-21] MEDS: BENZTROPINE MESYLATE 1 MG TABLET PO SCH ×2 (08:48→16:33)
[2019-02-21] MEDS: DIVALPROEX 250 MG TABLET.DR PO SCH ×3 (08:49→16:33)
[2019-02-21] MEDS: CHOLECALCIFEROL 1,000 UNIT TABLET PO SCH (08:49)
[2019-02-21] MEDS: CYANOCOBALAMIN 1,000 MCG TABLET PO SCH (08:49)
[2019-02-21] MEDS: AMANTADINE HCL 100 MG CAPSULE PO SCH ×2 (08:49→16:37)
[2019-02-21] MEDS: ENOXAPARIN SODIUM 40 MG/0.4 ML DISP.SYRIN SQ SCH (09:03)
[2019-02-21 09:08] LABS: BAND % (MANUAL) 7 % (0-10); EOSINOPHILS % (MANUAL) 1 % (0-8); LYMPHOCYTES % (MANUAL) 13 % (20-40); METAMYELOCYTES % 2 % (0-1); MONOCYTES % (MANUAL) 9 % (2-10); MYELOCYTES % 1 % (0-0); NEUTROPHILS % (MANUAL) 67 % (42-75)
[2019-02-21] MEDS: POTASSIUM CHLORIDE 40 MEQ in IV D5 1/2 NS 1000 ML 1,000 ML IV PRN (09:57)
[2019-02-21 11:46] VITALS: BP 122/66
[2019-02-21] MEDS: Z GUARD REMEDY PASTE 57 GM TUBE TOP PRN (12:08)
[2019-02-21 15:49] VITALS: BP 128/71
[2019-02-21] MEDS ORDERED: hydrALAZINE HCL 25 MG TABLET PO SCH (17:00)
[2019-02-21 20:00] VITALS: BP 129/77
[2019-02-21] MEDS: DIVALPROEX ER 500 MG TAB.SR.24H PO SCH (20:06)
[2019-02-21] MEDS: SENNOSIDES 1 TABLET PO SCH (20:06)
[2019-02-21] MEDS: ATORVASTATIN 20 MG TABLET PO SCH (20:06)
[2019-02-21] MEDS: hydrALAZINE HCL 50 MG TABLET PO SCH (20:07)
[2019-02-21] MEDS: Z GUARD REMEDY PASTE 57 GM TUBE TOP SCH (20:07)
[2019-02-21] MEDS: CEFTRIAXONE 1 G in IV DEXTROSE 5% 50 ML IV SCH (20:08)
[2019-02-21] MEDS ORDERED: MAGNESIUM HYDROXIDE 30 ML LIQUID UDC PO SCH (21:00)
[2019-02-22] VITALS: BP 133/73
[2019-02-22 04:00] VITALS: BP 138/71
[2019-02-22] MEDS: HYDROCODONE/APAP 5-325MG TABLET PO PRN ×2 (05:40→21:10)
[2019-02-22 06:47] LABS: BASOPHILS % (AUTO) 0.3 % (0.0-2.0); EOSINOPHILS # (AUTO) 0.7 K/uL (0.0-0.7); HEMATOCRIT 39.1 % (36.7-47.1); HEMOGLOBIN 12.8 g/dL (12.5-16.3); LYMPHOCYTES # (AUTO) 1.1 K/uL (20.0-40.0); LYMPHOCYTES % (AUTO) 13.5 % (20.5-51.5); MEAN CORPUSCULAR HEMOGLOBIN 30.7 uug (23.8-33.4); MEAN CORPUSCULAR HGB CONC 33 g/dL (32.5-36.3); MEAN CORPUSCULAR VOLUME 93.6 fL (73.0-96.2); MONOCYTES # (AUTO) 0.9 K/uL (2.0-10.0); MONOCYTES % (AUTO) 10.8 % (0.0-11.0); NEUTROPHILS # (AUTO) 5.5 K/uL (1.8-8.9); NEUTROPHILS % (AUTO) 67.4 % (38.5-71.5); PLATELET COUNT (AUTO) 148 K/uL (152-348); RED BLOOD CELL COUNT(AUTO) 4.17 MIL/uL (4.06-5.63); WHITE BLOOD COUNT (AUTO) 8.1 K/uL (3.6-10.2)
[2019-02-22 06:50] LABS: CARBON DIOXIDE 25 mmol/L (21-32); CHLORIDE 111 mmol/L (98-107); GLUCOSE 120 mg/dL (74-106); MAGNESIUM 1.8 mg/dL (1.8-2.4); PHOSPHOROUS 2.9 mg/dL (2.5-4.9); POTASSIUM 3.7 mmol/L (3.5-5.1); UREA NITROGEN, BLOOD 15 mg/dL (7-18)
[2019-02-22] MEDS: POTASSIUM CHLORIDE 40 MEQ in IV D5 1/2 NS 1000 ML 1,000 ML IV PRN (08:14)
[2019-02-22] MEDS: risperiDONE 2 MG TABLET PO SCH ×3 (08:50→16:15)
[2019-02-22] MEDS: BENZTROPINE MESYLATE 1 MG TABLET PO SCH ×2 (08:50→16:15)
[2019-02-22] MEDS: DOCUSATE SODIUM 100 MG CAPSULE PO SCH ×2 (08:50→16:15)
[2019-02-22] MEDS: CYANOCOBALAMIN 1,000 MCG TABLET PO SCH (08:50)
[2019-02-22] MEDS: ASPIRIN 81 MG TAB.CHEW PO SCH (08:50)
[2019-02-22] MEDS: DIVALPROEX 250 MG TABLET.DR PO SCH ×3 (08:50→16:15)
[2019-02-22] MEDS: AMLODIPINE 5 MG TABLET PO SCH ×2 (08:51→21:10)
[2019-02-22] MEDS: Z GUARD REMEDY PASTE 57 GM TUBE TOP SCH ×2 (08:51→21:11)
[2019-02-22] MEDS: CHOLECALCIFEROL 1,000 UNIT TABLET PO SCH (08:51)
[2019-02-22] MEDS: hydrALAZINE HCL 50 MG TABLET PO SCH ×2 (08:51→21:08)
[2019-02-22] MEDS: AMANTADINE HCL 100 MG CAPSULE PO SCH ×2 (08:52→16:15)
[2019-02-22] MEDS: ENOXAPARIN SODIUM 40 MG/0.4 ML DISP.SYRIN SQ SCH (08:58)
[2019-02-22 11:40] VITALS: BP 114/67
[2019-02-22] MEDS: SULFAMETH/TRIMETH 800/160 MG TABLET PO SCH ×2 (14:23→21:08)
[2019-02-22] MEDS: ACETAMINOPHEN 325 MG TABLET PO PRN (15:49)
[2019-02-22 16:00] VITALS: BP 127/73
[2019-02-22 20:39] VITALS: BP 115/61
[2019-02-22] MEDS: DIVALPROEX ER 500 MG TAB.SR.24H PO SCH (21:09)
[2019-02-22] MEDS: SENNOSIDES 1 TABLET PO SCH (21:10)
[2019-02-22] MEDS: ATORVASTATIN 20 MG TABLET PO SCH (21:10)
[2019-02-22] MEDS: Z GUARD REMEDY PASTE 57 GM TUBE TOP PRN (21:11)
[2019-02-23] VITALS: BP 144/49
[2019-02-23] MEDS: HYDROCODONE/APAP 5-325MG TABLET PO PRN ×3 (00:55→10:55)
[2019-02-23] MEDS: POTASSIUM CHLORIDE 40 MEQ in IV D5 1/2 NS 1000 ML 1,000 ML IV PRN (05:22)
[2019-02-23 05:54] VITALS: BP 111/61
[2019-02-23 08:57] LABS: BASOPHILS % (AUTO) 0.3 % (0.0-2.0); EOSINOPHILS # (AUTO) 0.7 K/uL (0.0-0.7); EOSINOPHILS % (AUTO) 10.6 % (0.0-7.0); HEMATOCRIT 38.3 % (36.7-47.1); HEMOGLOBIN 12.6 g/dL (12.5-16.3); LYMPHOCYTES # (AUTO) 1.1 K/uL (20.0-40.0); LYMPHOCYTES % (AUTO) 15.9 % (20.5-51.5); MEAN CORPUSCULAR HEMOGLOBIN 30.8 uug (23.8-33.4); MEAN CORPUSCULAR HGB CONC 33 g/dL (32.5-36.3); MEAN CORPUSCULAR VOLUME 93.8 fL (73.0-96.2); MONOCYTES # (AUTO) 0.6 K/uL (2.0-10.0); NEUTROPHILS # (AUTO) 4.5 K/uL (1.8-8.9); NEUTROPHILS % (AUTO) 64.2 % (38.5-71.5); PLATELET COUNT (AUTO) 145 K/uL (152-348); RED BLOOD CELL COUNT(AUTO) 4.08 MIL/uL (4.06-5.63); WHITE BLOOD COUNT (AUTO) 6.9 K/uL (3.6-10.2)
[2019-02-23] MEDS: hydrALAZINE HCL 50 MG TABLET PO SCH (09:00)
[2019-02-23] MEDS: AMLODIPINE 5 MG TABLET PO SCH (09:00)
[2019-02-23 09:07] LABS: ALANINE AMINOTRANSFERASE 34 U/L (16-63); ALKALINE PHOSPHATASE 56 U/L (50-136); ASPARTATE AMINOTRANSFERASE 23 U/L (15-37); BILIRUBIN,TOTAL 0.5 mg/dL (0.2-1.0); CARBON DIOXIDE 26 mmol/L (21-32); CHLORIDE 111 mmol/L (98-107); GLUCOSE 110 mg/dL (74-106); MAGNESIUM 1.8 mg/dL (1.8-2.4); PHOSPHOROUS 3.3 mg/dL (2.5-4.9); POTASSIUM 4.2 mmol/L (3.5-5.1); TOTAL PROTEIN, SERUM 6.6 g/dL (6.4-8.2); UREA NITROGEN, BLOOD 18 mg/dL (7-18)
[2019-02-23] MEDS: ASPIRIN 81 MG TAB.CHEW PO SCH (09:27)
[2019-02-23] MEDS: SULFAMETH/TRIMETH 800/160 MG TABLET PO SCH (09:27)
[2019-02-23] MEDS: CHOLECALCIFEROL 1,000 UNIT TABLET PO SCH (09:28)
[2019-02-23] MEDS: CYANOCOBALAMIN 1,000 MCG TABLET PO SCH (09:28)
[2019-02-23] MEDS: risperiDONE 2 MG TABLET PO SCH ×3 (09:28→16:00)
[2019-02-23] MEDS: BENZTROPINE MESYLATE 1 MG TABLET PO SCH ×2 (09:28→16:00)
[2019-02-23] MEDS: DIVALPROEX 250 MG TABLET.DR PO SCH ×3 (09:28→16:00)
[2019-02-23] MEDS: ENOXAPARIN SODIUM 40 MG/0.4 ML DISP.SYRIN SQ SCH (09:29)
[2019-02-23] MEDS: Z GUARD REMEDY PASTE 57 GM TUBE TOP SCH (09:30)
[2019-02-23] MEDS: AMANTADINE HCL 100 MG CAPSULE PO SCH ×2 (09:31→16:02)
[2019-02-23] MEDS: DOCUSATE SODIUM 100 MG CAPSULE PO SCH ×2 (09:32→16:00)
[2019-02-23] MEDS: ACETAMINOPHEN 325 MG TABLET PO PRN (10:29)
[2019-02-23 11:23] VITALS: BP 104/58
[2019-02-23] MEDS ORDERED: SULF1TAB3 PO (12:34)
[2019-02-23 15:19] VITALS: BP 122/57
== END 2019-02-23 18:48 | DRG 689 ==
LOC: ER 21:45 → TELE3 23:10
PROVIDERS: ADMIT Nurse Practitioner Acute Care; ATTEND Registered Nurse
PROC: 0JQ13ZZ Repair Face Subcutaneous Tissue and Fascia, Percutaneous Approach (ICD-10-PCS; principal; 2019-02-19)
DX: N39.0 Urinary tract infection, site not specified (principal); G93.41 Metabolic encephalopathy; E87.0 Hyperosmolality and hypernatremia; J98.11 Atelectasis; Z16.12 Extended spectrum beta lactamase (ESBL) resistance; I31.3 Pericardial effusion (noninflammatory); Z68.1 Body mass index [BMI] 19.9 or less, adult; E46 Unspecified protein-calorie malnutrition; R55 Syncope and collapse; S01.81XA Laceration without foreign body of other part of head, initial encounter; E87.6 Hypokalemia; G40.909 Epilepsy, unspecified, not intractable, without status epilepticus; H40.9 Unspecified glaucoma; G20 Parkinson's disease; B96.20 Unspecified Escherichia coli [E. coli] as the cause of diseases classified elsewhere; F02.80 Dementia in other diseases classified elsewhere, unspecified severity, without behavioral disturbance, psychotic disturbance, mood disturbance, and anxiety; E83.42 Hypomagnesemia; K21.9 Gastro-esophageal reflux disease without esophagitis; I71.4 Abdominal aortic aneurysm, without rupture; F25.0 Schizoaffective disorder, bipolar type; W03.XXXA Other fall on same level due to collision with another person, initial encounter; Y93.89 Activity, other specified; Y92.098 Other place in other non-institutional residence as the place of occurrence of the external cause; Z79.82 Long term (current) use of aspirin; Z88.0 Allergy status to penicillin; Z79.899 Other long term (current) drug therapy; N40.0 Benign prostatic hyperplasia without lower urinary tract symptoms; E78.5 Hyperlipidemia, unspecified
CPT/HCPCS: 36415; 70030-TC; 70450; 71045; 72125; 74230; 83605; 83735; 84100; 84443; 85025; 85730; 87040; 87086; 93005; 93307; A4217; A4663; C1758; G0378; J0696; J1650; J3475; J3480; J3490; J7060